=== PATIENT | female | born 1950 | race Caucasian/White ===

== ENCOUNTER 2020-01-23 07:54 | Outpatient (CLI) | payer MEDICARE, SELFPAY ==
--- NOTE | ~2020-01-23 | CT_ITS ---
CT shoulder RT wo con DATE: 01/23/2020 08:33 INDICATION: Right shoulder osteoarthritis TECHNIQUE: Axial images and sagittal and coronal reconstructions through the right shoulder Exam dose: 437.48 mGy-cm total exam DLP. COMPARISON: 01/18/2020 right shoulder FINDINGS: There is joint space narrowing, mild degenerative spurring and mild lateral clavicular and subacromial subarticular cystic change, consistent with degenerative change at the right acromioclavi cular joint. There is joint space narrowing and spurring of the glenoid process and humeral head as well as multip le subarticular degenerative cysts of the glenoid process and the humeral head, compatible with advan herson right glenohumeral osteoarthritis. No fracture, dislocation, periosteal reaction or bone destruction is evident. IMPRESSION: Severe osteoarthritis at the right glenohumeral joint Degenerative change of the right acromioclavicular joint Reviewed, dictated and finalized at [facility]. Reviewed, dictated and finalized at location [facility].
== END 2020-01-23 07:55 | disposition home or self-care (01) ==
PROVIDERS: PCP Family Medicine; Visit Provider Orthopaedic Surgery
DX: M19.011 Primary osteoarthritis, right shoulder (principal)
CPT/HCPCS: 73200

== ENCOUNTER 2020-01-29 11:56 | Outpatient (CLI) | payer MEDICARE, SELFPAY ==
--- NOTE | 2020-01-29 12:43 | ECG_ITS ---
Measurements Intervals [place] Rate: 54 P: 52 IA: 127 QRS: 23 QRSD: 88 T: 7 QT: 417 QTc: 397 Interpretive Statements SINUS BRADYCARDIA BASELINE ARTIFACT- I, II, III, AVR, AVL, AVF BORDERLINE ECG Electronically Signed On 01-29-2020 13:06:07 CDT by Prosper Constantino D.O.
[2020-01-29 13:05] LABS: Basophils Absolute Auto 0.1 K/mm3 (0.0-0.1); Basophils Percent Auto 0.7 % (0.2-1.2); Eosinophils Absolute Auto 0.2 K/mm3 (0-0.3); Eosinophils Percent Auto 3.2 % (0-4.4); Hematocrit 39.5 % (37.0-47.0); Hemoglobin 12.8 g/dL (12.0-15.0); Immature Granulocyte Absolute 0.01 K/mm3 (0.00-0.031); Immature Granulocyte Percent A 0.1 % (0-0.5); Lymphocytes Percent Auto 37.3 % (18.3-44.2); Mean Corpuscular HGB Conc 32.4 g/dl (32-36); Mean Corpuscular Hemoglobin 26.7 pg (26-34); Mean Corpuscular Volume 82.3 fl (80-100); Mean Platelet Volume 10.7 fl (7.4-10.4); Monocytes Absolute Auto 0.5 K/mm3 (0.1-0.6); Monocytes Percent Auto 7.1 % (2.6-8.5); Neutrophils Absolute Auto 3.7 K/mm3 (1.3-6.7); Neutrophils Percent Auto 51.6 % (45.5-73.1); Platelet Count Result 251 k/mm3 (150-375); Red Cell Distribution Width 16.4 % (11.5-14.5); White Blood Count 7.2 K/mm3 (4.5-10.0)
== END 2020-01-29 11:57 | disposition home or self-care (01) ==
LOC: ANHSURGERY 12:00
PROVIDERS: PCP Family Medicine; Visit Provider Orthopaedic Surgery
DX: M19.011 Primary osteoarthritis, right shoulder (principal); Z01.818 Encounter for other preprocedural examination; R94.31 Abnormal electrocardiogram [ECG] [EKG]
CPT/HCPCS: 36415; 85025; 86850; 86900; 86901; 87081; 93005

== ENCOUNTER 2020-02-09 01:05 | Outpatient (CLI) | payer MEDICARE, SELFPAY ==
[2020-02-09 19:05] LABS: SARS-CoV-2 RNA PCR Negative
== END 2020-02-09 01:06 | disposition home or self-care (01) ==
LOC: ANHCOVIDDT 01:05
PROVIDERS: PCP Family Medicine; Visit Provider Orthopaedic Surgery
DX: Z01.812 Encounter for preprocedural laboratory examination (principal); Z20.828 Contact with and (suspected) exposure to other viral communicable diseases
CPT/HCPCS: 87635; C9803; U0003

== ENCOUNTER 2020-02-11 11:44 | Inpatient (IN) | payer MEDICARE, SELFPAY ==
[2020-01-29 12:08] VITALS: BP 116/70; PULSE 60; RESP 18; TEMP 36.9; O2SAT 98
[2020-01-29 12:11] VITALS: BMI 27.2
--- NOTE | 2020-02-10 10:30 | WPDANESEPPF ---
Anes - Initial Pre Proc Eval Procedure: Operation Date: 02/11/20 07:30 Proposed Procedures p Right Anatomic Total Shoulder Arthroplasty - Momo Arguelles MD Date/Time: 02/10/20 10:30 Surgeon: Momo Arguelles MD Pre Op Diagnosis: DJD Right Shoulder Patient Data Age: 69 Gender: F Height: 1.52 m Weight: 63.3 kg Last Vital Signs Temp 36.9 C 01/29/20 12:08 Pulse 60 01/29/20 12:08 Resp 18 01/29/20 12:08 BP 116/70 01/29/20 12:08 Pulse Ox 98 01/29/20 12:08 Allergies Allergy/AdvReac Type Severity Reaction Status Date / Time Penicillins Allergy Unknown Unknown Verified 01/29/20 12:10 aspirin AdvReac Intermediate Congested Verified 02/11/20 06:42 Home Medications Medication Instructions Recorded Confirmed Type No Home Medications 01/18/20 01/29/20 History Patient hx anesthesia problems: none Family hx anesthesia problems: none PMFSH Past Medical History Medical History (Updated 02/08/20 @ 13:37 by Momo Arguelles MD) History of fracture of arm x3 Surgeries Osteoarthritis of right shoulder Surgical History Surgical History History of hysterectomy History of shoulder surgery (~03/06/11) Arth.Extensive Debridement & Removal Loose Body History of tonsillectomy Family History Family History Father Heart disease Parkinsons DVT (deep venous thrombosis) Mother Kidney failure Knee joint replacement status Frozen shoulder Grandparent Heart disease Son Neuroendocrine cancer Social History Social History Smoking status: Never smoker Second hand tobacco smoke exposure: No Alcohol intake: never Substance use: never Living arrangements: with family Spiritual care concerns: No Anes - Eval Final PreProcedure Day of Procedure 02/10/20 10:30 Patient weight: overweight Heart: regular rate and rhythm Lungs: clear to auscultation and normal air movement Airway: Mallampati scale Neurological: alert and oriented Last oral intake: >/= 8 hours ASA classification: II Emergent: no Anesthetic plan: proceed Anesthesia type and monitoring: general ETT Informed Consent: The patient's anesthetic plan and its attendant risks and benefits were discussed with the patient/family/POA. Questions were solicited and answers provided to the satisfaction of the patient/family/POA.
[2020-02-11] VITALS (14 sets, daily range): BP systolic 98–117; BP diastolic 49–78; PULSE 55–73; RESP 12–19; TEMP 36.1–36.7; O2SAT 94–100; BMI 26.7
--- NOTE | ~2020-02-11 | XR_ITS ---
EXAMINATION: XR shoulder RT min 2V DATE: 02/11/2020 11:01 INDICATION: Right shoulder arthroplasty. Postop. TECHNIQUE: 2 views of right shoulder were obtained. COMPARISON: Right shoulder radiographs 01/18/2020 FINDINGS: There is a total right shoulder arthroplasty in near-anatomic alignment. No fracture. There is gas in the soft tissues, consistent with recent surgery. IMPRESSION: 1. Total right shoulder arthroplasty in near-anatomic alignment. Reviewed, dictated and finalized at location [facility].
[2020-02-11] MEDS: LACTATED RINGERS 1,000 ML 30 ML IV CONT ×2 (06:30→10:43)
[2020-02-11] MEDS: TRANEXAMIC ACID 1,000MG/ISO100 1,000 MG/100 ML BAG 200 MG IVPB (06:35)
[2020-02-11] MEDS: ACETAMINOPHEN 500 MG TABLET 1000 MG PO (06:35)
[2020-02-11] MEDS: KETOROLAC 15 MG/ML VIAL (*BKC) IV PUSH (06:51)
--- NOTE | 2020-02-11 07:20 | WPDHPUPDATE1 ---
History and Physical Update Update Date/Time: 02/11/20 07:20 History and Physical has been reviewed, including an updated exam of the patient. There are NO changes in the patient's condition. Risks, benefits, and alternatives have been discussed and questions answered. Patient agrees to proceed with procedure.
--- NOTE | 2020-02-11 07:25 | WPDANESPNB ---
Anes - Peripheral Nerve Block Date/Time: 02/11/20 07:25 I have discussed with the patient/family/POA the placement of a peripheral nerve block for post-operative pain management, including associated risks, benefits, complications, and side effects. Alternative methods of post-operative analgesia were detailed. Questions were solicited and answers provided to the satisfaction of the patient/family/POA. Time-Out: A pre-procedural Time-Out was completed immediately before starting the procedure and confirmed: Patient Identification, Site, Procedure, Patient Position and the Availability of Requisite Equipment. Clinical Indications: Acute post-operative pain management requested by the operative surgeon. Nerve Block Insertion Note Anes-nerve block: supraclavicular right Patient position: supine Skin prep: chlorhexidine Needle: 22 gauge, stimulating, insulated echogenic needle. Needle length: 80 mm Technique: ultrasound (in plane) Injectate: bupivacaine 0.5% with epi 5 mcg/ml (20cc) Observations: tolerated well Complications: none Procedure start time:: 715 Procedure end time:: 720
[2020-02-11] MEDS: CLINDAMYCIN 900 MG/D5W 50 ML 900 MG/50 ML PIGGYBACK 50 MG IVPB (07:26)
--- NOTE | 2020-02-11 11:28 | PM.PROC ---
Procedure Note - Detailed Date of procedure: 02/11/20 Pre-op diagnosis: DJD Right Shoulder Post-op diagnosis: same Procedure performed: 1. Anatomic total shoulder arthroplasty 2. Lesser tuberosity osteotomy. 3. Biceps tenodesis. Description of procedure: Bone quality was very good on the humerus, and good on the glenoid despite the cystic changes there. The patient stature was very small. The smallest glenoid component fit with a 1 mm wall both anterior and posterior. Slight correction with the reaming, then another 5 degrees with the augmented implant. Soft tissue balance was ideal with the 41 head, thus a very slight overhang was accepted. Posterior capsule excision was needed for glenoid exposure. No repair or rotator interval closure was needed. Anatomic humeral retroversion was 25 degrees. Implants: Tornier Aequalis Ascend Flex humeral stem size 1B. Aequalis humeral head flex system size 41 low offset. Shoulder Innovations, Glenoid circular in-line peg, 5 degree augmented, 22 x 6 millimeter glenoid component. Anesthesia: GETA and regional (interscalenen block) Surgeon: Momo Arguelles MD Repair Miller: Brianna Grossman PA-C Estimated blood loss (mL): 150 Drains: No Complications: No immediate complications Condition: stable Disposition: PACU Findings: Network Admin Required for patient positioning, surgical retraction, limb positioning, assisting osteotomy repair, and wound closure. OPERATIVE DETAILS: The patient was given an interscalene block in the preoperative area. Preoperative antibiotics were given. The patient was transferred to the operating room and a general anesthetic was administered. The beach chair position was used at 45 degrees. All bony prominences were padded. The head was carefully stabilized on the [place] quality control head. A sterile prep and drape was performed in the usual manner with Chloraprep. A longitudinal incision was created at the anterior shoulder just lateral to the deltopectoral interval. Careful dissection was performed to expose the interval and protect the cephalic vein. The vein was retracted medially. The upper border of the pectoralis was released. Anterior circumflex vessel branches were suture ligated. The biceps was tenodesed. A small lesser tuberosity osteotomy was performed after opening the joint capsule at the rotator interval. The inferior capsule was released, exposing the humeral head. Osteophytes were removed. Care was taken to stay on bone to protect the axillary nerve. The anatomic head cut was taken with the oscillating saw. Sounding and broaching was performed. The neck anteversion and inclination were carefully assessed. Head sizing and offset were determined. The cut protector was placed, and attention was turned to the glenoid. Retractors were placed. Releases were carried out for exposure. The subscapularis was mobilized, the inferior capsule and long head of triceps released, and the superior and middle glenohumeral ligaments released as well. Labral tissue was resected. The sizing template was used and a guide pin was placed. 5? of deformity correction was performed. An additiona 5 degrees obtained with the implant. The reamer was placed over the guide pin and taken down to create a 3-4 millimeter wall. The peg drill guide was applied and the pegs drilled. The trial component was placed and fit very nicely. Excellent stability was confirmed. The real component was cemented into position. Excess cement was carefully removed. The humerus was prepared for subscapularis repair with the drilling and passage of 3 suture leaders, and a rip stop #2 tape suture at the biceps groove which was wrapped around the humeral stem. The real humeral stem and head were impacted into position. The shoulder was copiously irrigated periodically with pulsatile lavage. The shoulder was reduced and the subscapularis repaired with #5 Ethibond suture modified Isai-Kamran sutures, and reinforced with number 2 Ethibond suture. The rotator
--- NOTE | 2020-02-11 11:54 | ADMGEN ---
This patient, Amanda Ashford, was admitted to Medical Room 246-01. Patient/family oriented to hospital policies and general routines including ID bracelet, bed and alarms, visiting hours, pain management, procedures, bathroom and other care routines, personal items, smoking policy, room service/diet, and visiting hours. Information on how to activate the Rapid Response Team has been discussed. Patient/Family are encouraged to report perceived risks to care and to ask questions if they do not understand what they are told or what they should do.
--- NOTE | 2020-02-11 14:14 | PCPTNOTE ---
Attempted to see patient for PT evaluation post TSA, patient still unable to feel and move R UE, will attempt evaluation tomorrow morning.
[2020-02-11] MEDS: DOCUSATE SODIUM 100 MG CAPSULE PO (17:36)
[2020-02-11] MEDS: ASPIRIN 81 MG ENTERIC TABLET PO (17:36)
[2020-02-11] MEDS: MELOXICAM 7.5 MG TABLET PO (17:36)
[2020-02-12 01:57] VITALS: BP 108/57; PULSE 71; RESP 16; TEMP 36.4; O2SAT 98
[2020-02-12 06:00] VITALS: BP 95/60; PULSE 71; RESP 16; TEMP 36.8; O2SAT 95
[2020-02-12] MEDS: oxyCODONE HCL (*CRX) 5 MG TAB IR PO ×2 (07:09→11:28)
[2020-02-12] MEDS: DOCUSATE SODIUM 100 MG CAPSULE PO (09:05)
[2020-02-12] MEDS: ASPIRIN 81 MG ENTERIC TABLET PO (09:05)
[2020-02-12] MEDS: MELOXICAM 7.5 MG TABLET PO (09:05)
[2020-02-12 09:29] VITALS: BP 98/55; PULSE 60; RESP 16; TEMP 36.6; O2SAT 98
[2020-02-12 09:33] VITALS: O2SAT 95
--- NOTE | 2020-02-12 11:30 | PCOTNOTE ---
On 02/12/20, the student, Leslie Jordan, provided care and completed [facility] documentation on this patient. I have reviewed the student's documentation and agree with the findings.
[2020-02-12 14:00] VITALS: BP 109/69; PULSE 67; RESP 16; TEMP 36.6; O2SAT 100
--- NOTE | 2020-02-12 14:23 | WPDANESPN ---
Anes - Prog Note Post-Op Date/Time: 02/12/20 14:23 Cardiovascular status: normal Respiratory status: normal Airway patency: baseline Mental status: baseline Post-Op hydration status: normal Vital Signs: Last Vital Signs Temp 97.9 F 02/12/20 14:00 Pulse 67 02/12/20 14:00 Resp 16 02/12/20 14:00 BP 109/69 02/12/20 14:00 Pulse Ox 100 02/12/20 14:00 Pain Score (VAS): 04/24 I/O: Intake & Output 02/11/20 02/12/20 02/12/20 23:59 07:59 15:59 Intake Total 490 300 480 Output Total 500 1300 Balance -10 -1000 480 Post-procedural complaints: none Patient Feedback: Patient satisfied with anesthetic care.
--- NOTE | 2020-02-12 14:37 | PM.DS ---
DS: Admitting Diagnosis Admitting Diagnosis Admitting Diagnosis: DJD Right Shoulder DS: Discharge Diagnosis Discharge Diagnosis (1) Status post replacement of right shoulder joint: Code(s): Z96.611 - Presence of right artificial shoulder joint Status: Acute DS: Summary Hospital Course Reason for hospitalization: Anatomic total shoulder arthroplasty. Hospital Course: Tolerated surgery well. Progressed appropriately with therapy. Status at Discharge Functional status at discharge: independent ambulation Overall status at discharge: patient is progressing back to baseline Time Spent with Patient Time attestation: Total time spent providing and/or coordinating discharge services: Exam Const: General: no acute distress Resp: Effort & Inspection: normal respiratory effort Skin: Other: Wound healing well. Mepilex dressing intact. No hematoma or drainage. Sling applied appropriately. Deltoid muscle fires. Axillary nerve sensation intact. Good material handling supervisor strength. No edema. radial pulse palpable. Neuro: Motor exam (neuro): 5/5 motor strength present throughout Sensory Exam: normal sensation Psych: Mental Status: mental status grossly normal Speech and movement: Normal speech and movement present Discharge Plan Discharge Attending physician on discharge: Momo Arguelles Consulting providers: Denton Dyson V. Discharging Clinician: Momo Arguelles Patient Disposition: Home, Self-Care Activity: august shower Diet: as tolerated Wound Care Instructions: follow printed instructions Discharge Instructions: See instruction sheet. Patient Instructions: Antibiotic Form, Joint Replacement Surgery (DC), Shoulder Arthroplasty (DC), Pain Management After Surgery (DC) Stand Alone Forms: General Discharge Information Follow-up/Referrals: Momo Arguelles MD [Physician] - Discharge Medications: No Action oxycodone-acetaminophen 5-325 mg tablet 1 - 2 tablet PO Q4-6H MDD 6 tablets PRN (Reason: pain) Qty: 30 RF: 0 Date of admission: 02/11/20 11:44 Primary Care Provider: Renetta,Naye Arora Admitting Provider: Momo Arguelles Attending physician on admission: Momo Arguelles
== END 2020-02-12 15:24 | disposition home or self-care (01) | DRG 483 ==
LOC: ANH2MED 11:53
PROVIDERS: Admitting Provider Orthopaedic Surgery; PCP Family Medicine; Visit Provider Orthopaedic Surgery
PROC: 0RRJ0JZ Replacement of Right Shoulder Joint with Synthetic Substitute, Open Approach (ICD-10-PCS; CPT 23472; principal; 2020-02-11 07:30)
DX: M19.011 Primary osteoarthritis, right shoulder (principal); Z90.710 Acquired absence of both cervix and uterus
CPT/HCPCS: 73030; 87635; 97110; 97161; 97165; 97530; A4565; A9270; C1713; C1776; C9803; J0131; J0171; J0690; J1100; J1885; J2250; J2270; J2370; J2405; J2704; J2710; J2795; J3010; J7120; U0003

== ENCOUNTER 2021-04-13 09:01 | Outpatient (CLI) | payer MEDICARE, SELFPAY ==
--- NOTE | 2021-04-13 | ECG_ITS ---
Measurements Intervals [place] Rate: 60 P: 21 MN: 129 QRS: 26 QRSD: 80 T: 16 QT: 409 QTc: 410 Interpretive Statements SINUS RHYTHM BASELINE ARTIFACT- I, II, III, AVR, AVL, AVF NORMAL ECG Electronically Signed On 04-13-2021 10:19:39 HARNESS PULLER by Prosper Constantino D.O.
--- NOTE | ~2021-04-13 | CT_ITS ---
EXAMINATION: CT LE RT wo con DATE: 04/13/2021 09:37 INDICATION: Unilateral primary osteoarthritis of right knee. TECHNIQUE: Computed tomography (CT) of the right lower limb was performed without intravenous contras t. Automated exposure control and iterative reconstruction technique were employed. The dose-length p roduct was 1461.13 mGy-cm. COMPARISON: Right knee radiographs 02/08/2021 FINDINGS: Bone alignment is normal. There is mild right hip osteoarthritis. The right knee demonstrat e moderate tricompartmental osteoarthritis. There is a small knee joint effusion. There is mild ankle joint osteoarthritis. There is severe osteoarthritis of medial naviculocuneiform joint. There is mod erate fatty atrophy of the semimembranosus and long head of biceps femoris muscles. IMPRESSION: 1. Moderate right knee osteoarthritis. 2. Small right knee joint effusion. Reviewed, dictated and finalized at location [facility]. MAKER
[2021-04-13 10:25] LABS: Albumin Level 4.2 g/dL (3.5-5.1); Estimated Glomerular Filt Rate > 60; Glucose 97 mg/dL (65-110)
[2021-04-13 10:48] LABS: Urine Cotinine NEGATIVE
== END 2021-04-13 09:02 | disposition home or self-care (01) ==
PROVIDERS: PCP Family Medicine; Visit Provider Orthopaedic Surgery
DX: Z01.818 Encounter for other preprocedural examination (principal); M17.11 Unilateral primary osteoarthritis, right knee; M25.461 Effusion, right knee
CPT/HCPCS: 73700; 80307; 82040; 82565; 82947; 93005

== ENCOUNTER 2021-05-31 07:43 | Outpatient (CLI) | payer MEDICARE, SELFPAY ==
[2021-05-31 08:40] LABS: Basophils Absolute Auto 0.1 K/mm3 (0.0-0.1); Basophils Percent Auto 1.2 % (0.2-1.2); Eosinophils Absolute Auto 0.3 K/mm3 (0-0.3); Eosinophils Percent Auto 4.2 % (0-4.4); Hematocrit 36.1 % (37.0-47.0); Hemoglobin 11.2 g/dL (12.0-15.0); Immature Granulocyte Absolute 0.02 K/mm3 (0.00-0.031); Immature Granulocyte Percent A 0.3 % (0-0.5); Lymphocytes Absolute Auto 2.37 K/mm3 (0.9-3.2); Lymphocytes Percent Auto 35.9 % (18.3-44.2); Mean Platelet Volume 10.5 fl (7.4-10.4); Monocytes Absolute Auto 0.7 K/mm3 (0.1-0.6); Monocytes Percent Auto 10.3 % (2.6-8.5); Neutrophils Absolute Auto 3.2 K/mm3 (1.3-6.7); Neutrophils Percent Auto 48.1 % (45.5-73.1); Platelet Count Result 293 k/mm3 (150-375); Red Cell Distribution Width 15.5 % (11.5-14.5); White Blood Count 6.6 K/mm3 (4.5-10.0)
[2021-05-31 08:52] LABS: Albumin Level 4.3 g/dL (3.5-5.1); Estimated Glomerular Filt Rate > 60; Glucose 75 mg/dL (65-110)
[2021-05-31 08:52] LABS: Urine Cotinine NEGATIVE
[2021-06-01 12:56] LABS: Hemoglobin A1C 5.4 % (<5.7)
== END 2021-05-31 07:44 | disposition home or self-care (01) ==
LOC: ANHSURGERY 07:49
PROVIDERS: PCP Family Medicine; Visit Provider Orthopaedic Surgery
DX: Z01.812 Encounter for preprocedural laboratory examination (principal); M17.11 Unilateral primary osteoarthritis, right knee; Z51.81 Encounter for therapeutic drug level monitoring; Z79.899 Other long term (current) drug therapy
CPT/HCPCS: 80307; 82040; 82565; 82947; 83036; 85025; 87081

== ENCOUNTER → 2021-06-17 00:01 | Outpatient (CLI) | payer MEDICARE, SELFPAY ==
[2021-06-17 11:50] LABS: SARS-CoV-2 RNA PCR Negative
== END ==
PROVIDERS: PCP Family Medicine; Visit Provider Orthopaedic Surgery
DX: Z01.812 Encounter for preprocedural laboratory examination (principal); Z20.822 Contact with and (suspected) exposure to COVID-19
CPT/HCPCS: C9803; U0003; U0005

== ENCOUNTER 2021-06-20 00:20 | Day surgery (SDC) | payer MEDICARE, SELFPAY ==
--- NOTE | 2021-05-31 07:46 | PC.NURSE ---
Report to the Outpatient Waiting Room, entrance under the green pavilion located off [facility], at time _1000_ on date _06/20/21_. OR Time: _1200_. - You and your visitor will be asked a series of questions to screen for COVID 19 for your protection. - A mask is required within the hospital. Preoperative COVID Testing Requirements: COVID TEST SCHEDULED FOR 06/17/21 @ 0935 COVID test must be conducted within 72 hours of surgery and patient is asked to isolate self from time of testing until procedure. You will go to the [employer] [facility] for your COVID testing. The [employer] [facility] site is located at the corner of [address] [facility]. You will only be called if COVID results are positive and your surgeon may reschedule your elective surgery date. Patients may have clear liquids (water, carbonated beverages, clear teas, apple juice) until 3 hours prior to surgery (0900 AM) with a maximum of 20 ounces. - No food from midnight until time of surgery Take the following medications with a SIP of water the morning of surgery: _NONE__ Medications to discontinue per ANESTHESIA - _APPLE CIDER GUMMY 3 DAYS PRIOR TO SURGERY, LAST DOSE TO BE TAKEN ON 06/16/21___ Please no make-up, nail albanian, hairspray, perfume, deodorant, or body powder the day of surgery. No jewelry (including any body piercings) or valuables the day of surgery, leave them at home. Please take a shower or bath the night before, or the morning of, surgery with an antibacterial soap. Wear comfortable, loose fitting clothing. - Jewelry must be removed prior to entering the operating room. Rings and piercings that are not removed may be cut off. - The hospital will not accept responsibility for valuables. - Please leave all valuables, including medications, at home the day of surgery. If you are going home after surgery, a licensed sheet pile driver operator must drive you home. - NO public transportation without another adult. - We recommend that an adult stay with you for 24 hours following discharge. - We also recommend that you do not drive, make important decision, drink alcoholic beverages, or take any drugs that were not prescribed by your health care provider for at least 24 hours after your discharge time. One visitor will be allowed to accompany the patient into the hospital. Patients visitor will be instructed to remain with patient at all times or leave the building. We will allow the visitor to come back to the postoperative area when patient is ready. (VISITING HOURS 10AM - 7PM, 1 VISITOR PER DAY) Follow any additional instructions given to you from your surgeon. TOTAL JOINT CLASS SCHEDULED FOR 05/31/21 @ [address] [place] [address], USE MAIN ENTRANCE - LOWER LEVEL Instructions given to ___PT and asked if any additional questions and then verbalized understanding. Patient advised to call surgeon office or pre surgery nurse liaisonKAREN [phone] if any additional questions.
[2021-05-31 08:10] VITALS: BP 150/80; PULSE 78; RESP 18; TEMP 37.1; O2SAT 97; BMI 30.1
[2021-06-20] VITALS (15 sets, daily range): BP systolic 101–141; BP diastolic 50–81; PULSE 62–86; RESP 12–20; TEMP 36.2–37; O2SAT 95–100
--- NOTE | ~2021-06-20 | XR_ITS ---
EXAMINATION: XR knee RT 2V DATE: 06/20/2021 15:08 INDICATION: Total right knee arthroplasty. Postop. TECHNIQUE: 2 views of right knee were obtained. COMPARISON: Right knee radiographs 02/08/2021 FINDINGS: There is a total right knee arthroplasty with patellar resurfacing in near-anatomic alignme nt. No fracture. There is gas in the knee joint and soft tissues, consistent with recent surgery. IMPRESSION: 1. Total right knee arthroplasty in near-anatomic alignment. Reviewed, dictated and finalized at location A. T CLERKS SUPERVISOR
--- NOTE | 2021-06-20 10:31 | WPDANESEPPF ---
Anes - Initial Pre Proc Eval Procedure: Operation Date: 06/20/21 12:00 Proposed Procedures p Conformis Custom Right Total Knee Arthroplasty - Momo Arguelles MD Date/Time: 06/20/21 10:31 Surgeon: Momo Arguelles MD Pre Op Diagnosis: primary oa right knee Patient Data Age: 71 Gender: F Height: 1.52 m Weight: 68.8 kg Last Vital Signs Temp 37.1 C 05/31/21 08:10 Pulse 78 05/31/21 08:10 Resp 18 05/31/21 08:10 BP 150/80 H 05/31/21 08:10 Pulse Ox 97 05/31/21 08:10 Allergies Allergy/AdvReac Type Severity Reaction Status Date / Time Penicillins Allergy Unknown Unknown - Verified 06/20/21 10:27 A CHILD, AGE 5 aspirin AdvReac Mild Congested Verified 06/20/21 10:27 Home Medications Medication Instructions Recorded Confirmed Type apple cider vinegar 2 gummy QAM 05/31/21 06/20/21 History Patient hx anesthesia problems: none Family hx anesthesia problems: none Results Review: All pre-operative results and documents have been reviewed as part of the pre-operative evaluation. [facility] Past Medical History Medical History History of fracture of arm x3 Surgeries Osteoarthritis of right knee Osteoarthritis of right shoulder Surgical History Surgical History History of hysterectomy History of shoulder surgery (~03/06/11) Arth.Extensive Debridement & Removal Loose Body History of tonsillectomy History of total replacement of right shoulder joint (~02/11/20) Family History Family History Father Heart disease Parkinsons DVT (deep venous thrombosis) Mother Kidney failure Knee joint replacement status Frozen shoulder Grandparent Heart disease Son Neuroendocrine cancer Social History Social History Second hand tobacco smoke exposure: No Additional smoking assessment comments: PT DENIES ALL FORMS OF TOBACCO USE Alcohol intake: never Substance use: never Substance use type: does not use Living arrangements: with family Spiritual care concerns: No Anes - Eval Final PreProcedure Day of Procedure 06/20/21 10:31 Patient weight: overweight Heart: regular rate and rhythm Lungs: clear to auscultation and normal air movement Airway: Mallampati scale class II Neurological: alert and oriented Last oral intake: >/= 8 hours ASA classification: II Emergent: no Anesthetic plan: proceed Anesthesia type and monitoring: general LMA and standard monitoring Results Review: All pre-operative results and documents have been reviewed as part of the pre-operative evaluation. Informed Consent: The patient's anesthetic plan and its attendant risks and benefits were discussed with the patient/family/POA. Questions were solicited and answers provided to the satisfaction of the patient/family/POA.
--- NOTE | 2021-06-20 10:32 | WPDANESPNB ---
Anes - Peripheral Nerve Block Date/Time: 06/20/21 10:32 I have discussed with the patient/family/POA the placement of a peripheral nerve block for post-operative pain management, including associated risks, benefits, complications, and side effects. Alternative methods of post-operative analgesia were detailed. Questions were solicited and answers provided to the satisfaction of the patient/family/POA. Time-Out: A pre-procedural Time-Out was completed immediately before starting the procedure and confirmed: Patient Identification, Site, Procedure, Patient Position and the Availability of Requisite Equipment. Clinical Indications: Acute post-operative pain management requested by the operative surgeon. Nerve Block Insertion Note Anes-nerve block: adductor canal right Patient position: supine Skin prep: chlorhexidine Needle: 22 gauge, stimulating, insulated echogenic needle. Needle length: 80 mm Technique: ultrasound Injectate: bupivacaine 0.5% with epi 5 mcg/ml (30cc - no epi) Observations: tolerated well Complications: none Procedure start time:: 1150 Procedure end time:: 1153
[2021-06-20] MEDS: ACETAMINOPHEN 500 MG TABLET 1000 MG PO (10:36)
[2021-06-20] MEDS: LACTATED RINGERS 1,000 ML 30 ML IV CONT ×2 (10:51→14:49)
[2021-06-20] MEDS: TRANEXAMIC ACID 1,000MG/ISO100 1,000 MG/100 ML BAG 200 MG IVPB (11:00)
--- NOTE | 2021-06-20 11:29 | WPDHPUPDATE1 ---
History and Physical Update Update Date/Time: 06/20/21 11:29 History and Physical has been reviewed, including an updated exam of the patient. There are NO changes in the patient's condition. Risks, benefits, and alternatives have been discussed and questions answered. Patient agrees to proceed with procedure.
[2021-06-20] MEDS: ceFAZolin 2 GM/D5W 50 ML 2 GM/50 ML BAG IVPB ×2 (12:26→20:31)
[2021-06-20] MEDS: ONDANSETRON INJ 4 MG/2 ML VIAL IV PUSH (15:28)
[2021-06-20] MEDS: fentaNYL CITRATE INJ (*CRX) 100 MCG/2 ML VIAL 25 MCG IV PUSH ×4 (15:28→16:07)
--- NOTE | 2021-06-20 16:13 | W.PM.PROC2 ---
Procedure Note - Detailed Date of Procedure 06/20/21 Pre-op Diagnosis primary oa right knee Post-op Diagnosis Same Procedure Performed Total knee arthroplasty, right. Surgeon Momo Arguelles MD Clinical Science Liaison Brianna Pepper PA-C Anesthesia General and Regional (Subsartorial block.) Description of Procedure Physician bacteriology research assistant, Brianna Pepper PA-C, required for surgery; including patient positioning, draping, tissue retraction, maintaining instrument position, cement removal, wound closure, and dressing placement. Preoperative antibiotics were given. The limb was prepped and draped in the usual sterile fashion with a well-padded tourniquet high on the thigh. The limb was exsanguinated and the tourniquet inflated to 300 mmHg. A longitudinal incision was created just medial to the patella. A trivector approach to the knee was performed. Arthrotomy was taken down through the joint capsule. No significant releases were initially taken. The femur was exposed and the F1 jig was applied. The coring tool was used to remove the cartilage for the F2 jig to sit flush with the bone. The jig was pinned and the distal cut carefully taken. Caliper measurements confirmed appropriate bony resections according to the preoperative templated plan. The F4 cutting jig for the femur was applied, at the standard rotation. The AP and anterior chamfer cuts were taken. The F5 jig was applied and the posterior chamfer cuts were taken. The tibia was prepared using the T1 jig, after removing cartilage for the jig contact points. Proper alignment was checked with the alignment loretta. The tibia was cut using the T1u guide. Gap balancing was performed. Gap measurements were taken and the knee was trialed. Excellent alignment and soft tissue balancing was confirmed. The posterior cruciate ligament was recessed along the proximal tibia. The patella was cut for resurfacing. Three lug holes were drilled. Meniscal remnants were removed. The trial components were assembled. Excellent range of motion and proper soft tissue balancing were confirmed throughout the full range of motion. Patellar tracking was excellent. The knee was copiously irrigated periodically throughout the procedure. The real implants were cemented into position. Excess cement was carefully removed. The wound was closed in layers with interrupted #1 Vicryl suture, 2-0 strata fix suture, 0 strata fix suture, 2-0 strata fix suture. Steri-Strips placed on the skin with the knee flexed. Sterile bulky dressing applied. The patient was brought to the recovery room in stable condition. There were no complications. Implants Conformis Custom total knee arthroplasty. Cemented. Cruciate retaining. 7B insert. 29 mm round patella. Estimated Blood Loss -200.0 Drains No Complications No immediate complications Condition Stable Disposition PACU
--- NOTE | 2021-06-20 16:43 | ADMGEN ---
This patient, Amanda Ashford, was admitted to Medical Room 241-. Patient/family oriented to hospital policies and general routines including ID bracelet, bed and alarms, visiting hours, pain management, procedures, bathroom and other care routines, personal items, smoking policy, room service/diet, and visiting hours. Information on how to activate the Rapid Response Team has been discussed. Patient/Family are encouraged to report perceived risks to care and to ask questions if they do not understand what they are told or what they should do.
[2021-06-20] MEDS: SODIUM CHLORIDE 0.9% IV 1,000 ML 125 ML IV CONT (17:56)
[2021-06-20] MEDS: MELOXICAM 7.5 MG TABLET PO (17:58)
[2021-06-20] MEDS: ASPIRIN 81 MG ENTERIC TABLET PO (20:31)
[2021-06-20] MEDS: oxyCODONE HCL (*CRX) 5 MG TAB IR PO (20:31)
[2021-06-20] MEDS: FAMOTIDINE 20 MG TABLET PO (20:31)
[2021-06-20] MEDS: SENNA/DOCUSATE SODIUM TABLET 2 TAB PO (20:31)
[2021-06-21] MEDS: ceFAZolin 2 GM/D5W 50 ML 2 GM/50 ML BAG IVPB ×2 (04:34→11:14)
[2021-06-21 05:13] VITALS: BP 91/48; PULSE 71; RESP 20; TEMP 36.1; O2SAT 96
[2021-06-21 08:30] VITALS: BP 113/63; PULSE 85
[2021-06-21] MEDS: oxyCODONE HCL (*CRX) 5 MG TAB IR PO (08:51)
[2021-06-21] MEDS: SENNA/DOCUSATE SODIUM TABLET 2 TAB PO (08:52)
[2021-06-21] MEDS: ASPIRIN 81 MG ENTERIC TABLET PO (08:52)
[2021-06-21] MEDS: polyethylene glycoL 3350 17 GM POWD.PACK PO (08:52)
[2021-06-21] MEDS: FAMOTIDINE 20 MG TABLET PO (08:52)
[2021-06-21] MEDS: MELOXICAM 7.5 MG TABLET PO (08:52)
[2021-06-21 09:58] VITALS: BP 117/59; PULSE 69; RESP 16; TEMP 37.1; O2SAT 99
--- NOTE | 2021-06-21 10:49 | P.DS_ITS ---
DS: Admitting Diagnosis Discharge Date 06/21/21 Admitting Diagnosis OA knee Right DS: Discharge Diagnosis Discharge Diagnosis (1) Status post total right knee replacement: Code(s): Z96.651 - Presence of right artificial knee joint Status: Acute Assessment and Plan: Postop day 1: Right total Knee arthroplasty. Patient tolerated procedure well. No complications. Pain manageable with pain medication. No numbness or tingling. We had a lengthy discussion regarding postoperative wound care, limitations, expectations, and exercises. Patient shows good understanding. He has had initial physical therapy and is tolerating it well. DVT prophylaxis: 81 mg baby aspirin b.i.d. for 14 days. Compression socks for 3 weeks. Short frequent walks. Pain medication: Percocet. Prednisone. Meloxicam. Patient has followup appointment with Dr. Arguelles in 3 weeks. DS: Summary Hospital Course Reason for hospitalization: Total knee arthroplasty Hospital Course: Patient tolerated procedure well. Has had initial PT/OT. No complications. Pain well managed. Status at Discharge Functional status at discharge: uses cane/walker Overall status at discharge: patient is progressing back to baseline Time Spent with Patient Time attestation: Total time spent providing and/or coordinating discharge services: Exam Narrative: Overweight 71 y/o female. Resting comfortably in chair. No acute distress. A&O x3. Wearing compression socks bilaterally. Dressing intact with no drainage. Moderate swelling. No ecchymosis. No erythema. No hematoma. Good early range of motion. Calf nontender. Neurologic status intact. No varicosities. Distal pulses palpable. DS: Data Data Completed and Pending Labs on day of discharge: Labs from last 24 hours 06/20/21 10:13 Blood Type A Positive Antibody Screen Negative Discharge Plan Discharge Patient Disposition: Home, Self-Care Discharge Instructions: See green instruction sheet Stand Alone Forms: General Discharge Instructions Follow-up/Referrals: Brianna Pepper PA [Physician Geophysics Scientist] - Discharge Medications: New meloxicam 15 mg tablet 15 mg PO DAILY Qty: 30 RF: 0 prednisone 5 mg tablet 5 mg PO DAILY 21 Days Qty: 21 RF: 0 aspirin 81 mg tablet,delayed release (DR/EC) 81 mg PO BID 14 Days Qty: 28 RF: 0 oxycodone-acetaminophen 5-325 mg tablet 1 - 2 tablet PO Q4-6H MDD 6 PRN (Reason: pain) Qty: 30 RF: 0 Continued apple cider vinegar 2 gummy QAM RF: 0 Other Ambulatory Orders: Hemoglobin A1C (Routine) Timeframe: 2 Months Location: Determined by Patient Ordered By: Momo Arguelles
[2021-06-21] MEDS: ONDANSETRON INJ 4 MG/2 ML VIAL IV PUSH (12:09)
[2021-06-21] MEDS: oxyCODONE HCL (*CRX) 5 MG TAB IR 10 MG PO (13:09)
--- NOTE | 2021-06-21 13:09 | WPDANESPN ---
Anes - Prog Note Post-Op Date/Time: 06/21/21 13:09 Cardiovascular status: normal Respiratory status: normal Airway patency: baseline Mental status: baseline Post-Op hydration status: normal Vital Signs: Last Vital Signs Temp 37.1 C 06/21/21 09:58 Pulse 69 06/21/21 09:58 Resp 16 06/21/21 09:58 BP 117/59 L 06/21/21 09:58 Pulse Ox 99 06/21/21 09:58 Pain Score (VAS): 0 I/O: Intake & Output 06/20/21 06/21/21 06/21/21 23:59 07:59 15:59 Intake Total 690 340 240 Balance 690 340 240 Post-procedural complaints: none Patient Feedback: Patient satisfied with anesthetic care.
[2021-06-21 13:35] VITALS: BP 118/58; PULSE 80; RESP 14; TEMP 36.7; O2SAT 100
== END 2021-06-21 14:14 | disposition home or self-care (01) ==
LOC: ANHSURGERY 10:04 → ANH2MED 16:38
PROVIDERS: PCP Family Medicine; Visit Provider Orthopaedic Surgery
PROC: (CPT 27447; principal; 2021-06-20 12:00)
DX: M17.11 Unilateral primary osteoarthritis, right knee (principal); G89.18 Other acute postprocedural pain
CPT/HCPCS: 27447; 64447; 36415; 73560; 86850; 86900; 86901; 97110; 97116; 97161; 97165; 97535; A9270; C1713; C1776; J0131; J0171; J0690; J1100; J1885; J2250; J2270; J2405; J2704; J2795; J3010; J7030; J7120

== ENCOUNTER 2021-12-06 01:26 | Day surgery (SDC) | payer MEDICARE, SELFPAY ==
[2021-12-05 08:22] VITALS: BMI 28.3
--- NOTE | 2021-12-05 08:27 | PC.NURSE ---
Report to the Outpatient Waiting Room, entrance under the green pavilion located off [facility], at time ___0800____ on date __12/06/21 . OR Time: ____999____. - You and your visitor will be asked to self-screen and do not enter if you have any COVID symptoms. - Only one visitor and NO children visitors are allowed at this time. - The patient visitor is requested to leave or wait in car when not with patient due to restrictions. - A mask is required within the hospital. Patients may have clear liquids (water, carbonated beverages, clear teas, apple juice) until 3 hours prior to surgery (0700 AM) with a maximum of 20 ounces. - No food from midnight until time of surgery - Infants may have breast milk until 4 hours before surgery, formula 6 hours prior to surgery. - Children will be allowed to drink immediately following surgery. If applicable, please bring a bottle or sippy cup to assist with drinking. Juice, water, soda, and popsicles are readily available. For infants on formula, please bring formula the day of surgery. Pacifiers are allowed. Take the following medications with a SIP of water the morning of surgery: NONE Medications to discontinue per physician NONE Date to take last dose Please no make-up, nail russian, hairspray, perfume, deodorant, or body powder the day of surgery. No jewelry (including any body piercings) or valuables the day of surgery, leave them at home. Please take a shower or bath the night before, or the morning of, surgery with an antibacterial soap. Wear comfortable, loose fitting clothing. Children are encouraged to wear pajamas. - Jewelry must be removed prior to entering the operating room. Rings and piercings that are not removed may be cut off. - The hospital will not accept responsibility for valuables. - Please leave all valuables, including medications, at home the day of surgery. If you are going home after surgery, a licensed helper driver must drive you home. - NO public transportation without another adult. - We recommend that an adult stay with you for 24 hours following discharge. - We also recommend that you do not drive, make important decision, drink alcoholic beverages, or take any drugs that were not prescribed by your health care provider for at least 24 hours after your discharge time. For Pediatric surgeries, we recommend two adults accompany the child home (only one inside the building at this time). Follow any additional instructions given to you from your surgeon. If you or anyone in your household have experienced Covid symptoms in the past week, please notify your surgeon or the nurse liaison at the phone number below for possible testing. Telephone instructions given to __PT and asked if any additional questions and then verbalized understanding. Patient advised to call surgeon office or pre surgery nurse liaison [phone] if any additional questions.
--- NOTE | 2021-12-05 14:00 | P.PNAN_ITS ---
Anes - Initial Pre Proc Eval Procedure: Operation Date: 12/06/21 10:00 Proposed Procedures p Right Knee Manipulation - Momo Arguelles MD Date/Time: 12/05/21 14:00 Surgeon: Momo Arguelles MD Pre Op Diagnosis: contracture right knee Patient Data Age: 71 Gender: F Height: 1.52 m Weight: 65.9 kg Allergies Allergy/AdvReac Type Severity Reaction Status Date / Time Penicillins Allergy Unknown Unknown - Verified 12/05/21 08:21 A CHILD, AGE 5 aspirin AdvReac Mild Congested Verified 12/05/21 08:21 Home Medications Medication Instructions Recorded Confirmed Type apple cider vinegar 2 gummy QAM 05/31/21 12/05/21 History Patient hx anesthesia problems: none Family hx anesthesia problems: none Results Review: All pre-operative results and documents have been reviewed as part of the pre- operative evaluation. [facility] Past Medical History Medical History History of fracture of arm x3 Surgeries Osteoarthritis of right knee Osteoarthritis of right shoulder Surgical History Surgical History History of hysterectomy History of shoulder surgery (~03/06/11) Arth.Extensive Debridement & Removal Loose Body History of tonsillectomy History of total replacement of right shoulder joint (~02/11/20) Family History Family History Father Heart disease Parkinsons DVT (deep venous thrombosis) Mother Kidney failure Knee joint replacement status Frozen shoulder Grandparent Heart disease Son Neuroendocrine cancer Social History Social History Smoking status: Never smoker Second hand tobacco smoke exposure: No Additional smoking assessment comments: PT DENIES ALL FORMS OF TOBACCO USE Alcohol intake: never Substance use: never Substance use type: does not use Living arrangements: with family Spiritual care concerns: No Anes - Eval Final PreProcedure Day of Procedure 12/05/21 14:00 Patient weight: overweight Heart: regular rate and rhythm Lungs: clear to auscultation Airway: Mallampati scale class II Neurological: alert and oriented Last oral intake: >/= 8 hours ASA classification: II Emergent: no Anesthetic plan: proceed Anesthesia type and monitoring: general GIVS and standard monitoring Results Review: All pre-operative results and documents have been reviewed as part of the pre- operative evaluation. Informed Consent: The patient's anesthetic plan and its attendant risks and benefits were discussed with the patient/family/POA. Questions were solicited and answers provided to the satisfaction of the patient/family/POA.
[2021-12-06] VITALS (9 sets, daily range): BP systolic 109–133; BP diastolic 58–82; PULSE 51–64; RESP 12–16; TEMP 36.1–36.3; O2SAT 97–100
[2021-12-06] MEDS: LACTATED RINGERS 1,000 ML 30 ML IV CONT (08:30)
[2021-12-06] MEDS: ACETAMINOPHEN 500 MG TABLET 1000 MG PO (08:32)
[2021-12-06] MEDS: KETOROLAC 15 MG/ML VIAL (*BKC) IV PUSH (08:33)
--- NOTE | 2021-12-06 09:04 | WPDHPUPDATE1 ---
History and Physical Update Update Date/Time: 12/06/21 09:04 History and Physical has been reviewed, including an updated exam of the patient. There are NO changes in the patient's condition. Risks, benefits, and alternatives have been discussed and questions answered. Patient agrees to proceed with procedure.
--- NOTE | 2021-12-06 09:53 | SUR.PHASEI ---
0952: Simple mask removed.
--- NOTE | 2021-12-06 10:21 | SUR.PHASEI ---
Left a message for Dr. Arguelles's office in regards to discharge orders.
--- NOTE | 2021-12-06 10:36 | SUR.PHASEI ---
RN left a message on Dr. Arguelles's cell phone for discharge orders.
[2021-12-06] MEDS: oxyCODONE HCL (*CRX) 5 MG TAB IR PO (10:43)
--- NOTE | 2021-12-06 11:04 | W.PM.PROC2 ---
Procedure Note - Detailed Date of Procedure 12/06/21 Pre-op Diagnosis contracture right knee, s/p right total knee arthroplasty. Post-op Diagnosis Same Procedure Performed Manipulation under anesthesia. Surgeon Momo Arguelles MD Anesthesia General Description of Procedure Stiffness and pain status post total knee arthroplasty 5 months ago. Initially had good motion but fell on 2 occasions. No sign of implant damage or infection. General anesthetic administered. Examination revealed motion limitation to 85?. Gentle pressure improved motion to 115? easily. 120? with pressure. Adhesions at the superolateral joint and lateral retinacular area were felt to release. Patient tolerated the procedure well. No complications. Complications No immediate complications Condition Stable Disposition PACU [facility] Billing Surgery - Charge Forward: Surgery Billing
== END 2021-12-06 11:45 | disposition home or self-care (01) ==
PROVIDERS: PCP Family Medicine; Visit Provider Orthopaedic Surgery
PROC: (CPT 27570; principal; 2021-12-06 10:00)
DX: M24.561 Contracture, right knee (principal); Z96.651 Presence of right artificial knee joint
CPT/HCPCS: 27570; A9270; J1030; J1040; J1100; J1885; J2405; J2704; J3010; J3301; J7120

== ENCOUNTER 2022-10-02 14:46 | Outpatient (CLI) | payer MEDICARE, SELFPAY ==
--- NOTE | ~2022-10-02 | XR_ITS ---
XR knee LT 3V 10/02/2022 15:23 Indication: Left posterior knee pain Procedure: 3 views left knee Comparison: No prior studies for comparison. Findings: There is moderate tricompartment osteoarthritis. Small joint effusion. No fracture or traum atic malalignment. Osteopenia. Impression: 1: Moderate tricompartment osteoarthritis of the left knee. Reviewed, dictated and finalized at location L. Impression: 1: Moderate tricompartment osteoarthritis of the left knee.
--- NOTE | ~2022-10-02 | US_ITS ---
EXAMINATION: US soft tissue LE LT DATE: 10/02/2022 15:20 INDICATION: Posterior left knee pain TECHNIQUE: Multiple grayscale and Doppler ultrasound images of the posterior fossa the left knee were obtained. COMPARISON: None FINDINGS: No Haines's cyst or other abnormal masses or fluid collections identified at the left popliteal fossa. Small amount of joint fluid along the medial femoral condyle which remains within normal limits. IMPRESSION: 1. No Haines's cyst or other abnormal masses or fluid collections at the left popliteal fossa. Reviewed, dictated and finalized at location A. IMPRESSION: 1. No Haines's cyst or other abnormal masses or fluid collections at the left po pliteal fossa.
== END 2022-10-02 14:47 | disposition home or self-care (01) ==
PROVIDERS: PCP Family Medicine; Referring Provider Orthopaedic Surgery
DX: M25.562 Pain in left knee (principal); M17.12 Unilateral primary osteoarthritis, left knee
CPT/HCPCS: 73562; 76882

== ENCOUNTER 2022-10-15 11:19 | Outpatient (CLI) | payer MEDICARE, SELFPAY ==
--- NOTE | ~2022-10-15 | XR_ITS ---
Left Knee Technique: AP, lateral, and sunrise views were obtained. Clinical History: Effusion Findings: No fracture or dislocation is seen. There is mild to moderate tricompartmental degenerative change. Soft tissues are unremarkable. No joint effusion is seen. Impression: Mild to moderate tricompartmental degenerative change. Reviewed, dictated and finalized at location . Impression: Mild to moderate tricompartmental degenerative change.
== END 2022-10-15 11:20 | disposition home or self-care (01) ==
PROVIDERS: PCP Family Medicine; Visit Provider Orthopaedic Surgery
DX: M25.462 Effusion, left knee (principal); M17.12 Unilateral primary osteoarthritis, left knee
CPT/HCPCS: 73564

== ENCOUNTER 2022-10-24 13:38 | Outpatient (CLI) | payer MEDICARE, SELFPAY ==
--- NOTE | ~2022-10-24 | CT_ITS ---
EXAMINATION: CT LE LT wo con DATE: 10/24/2022 14:26 INDICATION: Left knee primary osteoarthritis. Preoperative planning. TECHNIQUE: Computed tomography (CT) of the left lower limb was performed without intravenous contrast . Automated exposure control and iterative reconstruction technique were employed. The dose-length pr oduct was 1457.89 mGy-cm. COMPARISON: Left knee radiographs 10/15/2022 FINDINGS: The left hip joint demonstrates normal bone alignment. No fracture. There is mild left hip osteoarthritis. The left knee demonstrates normal bone alignment. There is moderate osteoarthritis of medial and patellofemoral compartments and and mild osteoarthritis of lateral compartment. There is a small knee joint effusion. There is mild left ankle joint osteoarthritis. IMPRESSION: 1. Moderate left knee osteoarthritis. 2. Small left knee joint effusion. 3. Mild left hip and ankle joint osteoarthritis. Reviewed, dictated and finalized at location E.
--- NOTE | 2022-10-24 13:43 | ECG_ITS ---
Measurements Intervals [place] Rate: 60 P: 66 DE: 128 QRS: 26 QRSD: 78 T: 16 QT: 385 QTc: 386 Interpretive Statements SINUS RHYTHM POSSIBLE LEFT ATRIAL ENLARGEMENT BORDERLINE ECG COMPARED TO ECG 04/13/2021 10:12:50 NO SIGNIFICANT CHANGES Electronically Signed On 10-24-2022 14:16:32 CDT by Prosper Constantino D.O.
[2022-10-24 13:53] LABS: Albumin Level 4.1 g/dL (3.5-5.1); Estimated Glomerular Filt Rate > 60
== END 2022-10-24 13:39 | disposition home or self-care (01) ==
PROVIDERS: PCP Family Medicine; Visit Provider Orthopaedic Surgery
DX: M17.12 Unilateral primary osteoarthritis, left knee (principal); M25.462 Effusion, left knee; M16.12 Unilateral primary osteoarthritis, left hip; M19.072 Primary osteoarthritis, left ankle and foot; R94.31 Abnormal electrocardiogram [ECG] [EKG]
CPT/HCPCS: 36415; 73700; 82040; 82565; 93005

== ENCOUNTER 2022-12-12 10:06 | Outpatient (CLI) | payer MEDICARE, SELFPAY ==
[2022-12-12 11:15] LABS: Basophils Absolute Auto 0.1 K/mm3 (0.0-0.1); Eosinophils Absolute Auto 0.4 K/mm3 (0-0.3); Eosinophils Percent Auto 5.8 % (0-4.4); Hematocrit 40.8 % (37.0-47.0); Hemoglobin 12.9 g/dL (12.0-15.0); Immature Granulocyte Absolute 0.02 K/mm3 (0.00-0.031); Immature Granulocyte Percent A 0.3 % (0-0.5); Lymphocytes Absolute Auto 2.26 K/mm3 (0.9-3.2); Lymphocytes Percent Auto 33.5 % (18.3-44.2); Mean Corpuscular HGB Conc 31.6 g/dl (32-36); Mean Corpuscular Hemoglobin 27.4 pg (26-34); Mean Corpuscular Volume 86.6 fl (80-100); Mean Platelet Volume 10.1 fl (7.4-10.4); Monocytes Absolute Auto 0.5 K/mm3 (0.1-0.6); Monocytes Percent Auto 7.3 % (2.6-8.5); Neutrophils Absolute Auto 3.5 K/mm3 (1.3-6.7); Neutrophils Percent Auto 52.1 % (45.5-73.1); Platelet Count Result 279 k/mm3 (150-375); Red Blood Count 4.71 M/mm3 (4.2-5.4); Red Cell Distribution Width 15.6 % (11.5-14.5); White Blood Count 6.7 K/mm3 (4.5-10.0)
[2022-12-12 11:25] LABS: Albumin Level 4.3 g/dL (3.5-5.1); Estimated Glomerular Filt Rate > 60; Glucose 93 mg/dL (65-110)
[2022-12-12 11:33] LABS: Urine Cotinine NEGATIVE
[2022-12-12 11:35] LABS: Hemoglobin A1C 5.5 % (<5.7)
== END 2022-12-12 10:07 | disposition home or self-care (01) ==
LOC: ANHSURGERY 10:09
PROVIDERS: PCP Family Medicine; Visit Provider Orthopaedic Surgery
DX: M17.12 Unilateral primary osteoarthritis, left knee (principal); Z01.818 Encounter for other preprocedural examination
CPT/HCPCS: 80307; 82040; 82565; 82947; 83036; 85025; 87081

== ENCOUNTER 2023-01-07 01:13 | Day surgery (SDC) | payer MEDICARE, SELFPAY ==
--- NOTE | 2022-12-12 09:37 | PC.NURSE ---
PRE-OP INSTRUCTIONS, PLEASE READ CAREFULLY Report to the Outpatient Waiting Room, entrance under the green pavilion located off [facility], at time _1000_ on date _01/07/23_. Planned Procedure Time: _1200_. PACK A SMALL OVERNIGHT BAG AND LEAVE IN THE CAR Time changes happen often and if your time is changed the preop area will call you the afternoon before. - You and your visitor will be asked to self-screen and do not enter if you have any COVID symptoms. - A mask is optional within the hospital at this time. -VISITING HOURS 8AM-8PM Patients may have clear liquids (water, carbonated beverages, clear teas, apple juice) until 3 hours prior to surgery (0900 AM) with a maximum of 20 ounces. - No food from midnight until time of surgery Take the following medications with a SIP of water the morning of surgery: DO NOT STOP ANY OF YOUR OTHER PRESCRIPTION MEDICATIONS PRIOR TO SURGERY ?EXCEPT THE FOLLOWING Medications to discontinue per physician Date to take last dose Please no make-up, nail uruguayan, hairspray, perfume, deodorant, or body powder the day of surgery. No jewelry (including any body piercings) or valuables the day of surgery, leave them at home. Please take a shower or bath the night before, or the morning of, surgery with an antibacterial soap. Wear comfortable, loose fitting clothing. - Jewelry must be removed prior to entering the operating room. Rings and piercings that are not removed may be cut off. - The hospital will not accept responsibility for valuables. - Please leave all valuables, including medications, at home the day of surgery. If you are going home after surgery, a licensed package delivery driver must drive you home. - NO public transportation without another adult if you receive anesthesia. - We recommend that an adult stay with you for 24 hours following discharge. - We also recommend that you do not drive, make important decision, drink alcoholic beverages, or take any drugs that were not prescribed by your health care provider for at least 24 hours after your discharge time. Follow any additional instructions given to you from your surgeon. If you or anyone in your household have experienced Covid symptoms in the past week, please notify your surgeon or the nurse liaison at the phone number below for possible testing. Instructions given to _PATIENT_and asked if any additional questions and then verbalized understanding. Patient advised to call surgeon office or pre surgery nurse liaison [phone] if any additional questions.
--- NOTE | 2022-12-12 09:42 | PC.NURSE ---
PRE-OP INSTRUCTIONS, PLEASE READ CAREFULLY Report to the Outpatient Waiting Room, entrance under the green pavilion located off [facility], at time _1000_ on date _01/07/23_. Planned Procedure Time: _1200_. PACK A SMALL OVERNIGHT BAG AND LEAVE IN THE CAR ALONG WITH YOUR WALKER Time changes happen often and if your time is changed the preop area will call you the afternoon before. - You and your visitor will be asked to self-screen and do not enter if you have any COVID symptoms. - A mask is optional within the hospital at this time. -VISITING HOURS 8AM-8PM Patients may have clear liquids (water, carbonated beverages, clear teas, apple juice) until 3 hours prior to surgery (0900 AM) with a maximum of 20 ounces. - No food from midnight until time of surgery Take the following medications with a SIP of water the morning of surgery: _TYLENOL IF NEEDED_ DO NOT STOP ANY OF YOUR OTHER PRESCRIPTION MEDICATIONS PRIOR TO SURGERY ?EXCEPT THE FOLLOWING Medications to discontinue per DR. LIU -_IBUPROFEN 7 DAYS PRIOR TO SURGERY, Date to take last dose 12/30/22_ Medications to discontinue per ANESTHESIA - _APPLE CIDER VINEGAR, [facility] 3 DAYS PRIOR TO SURGERY, Date to take last dose 01/03/23_ Please no make-up, nail colombian, hairspray, perfume, deodorant, or body powder the day of surgery. No jewelry (including any body piercings) or valuables the day of surgery, leave them at home. Please take a shower or bath the night before, or the morning of, surgery with an antibacterial soap. Wear comfortable, loose fitting clothing. - Jewelry must be removed prior to entering the operating room. Rings and piercings that are not removed may be cut off. - The hospital will not accept responsibility for valuables. - Please leave all valuables, including medications, at home the day of surgery. If you are going home after surgery, a licensed pile driver must drive you home. - NO public transportation without another adult if you receive anesthesia. - We recommend that an adult stay with you for 24 hours following discharge. - We also recommend that you do not drive, make important decision, drink alcoholic beverages, or take any drugs that were not prescribed by your health care provider for at least 24 hours after your discharge time. Follow any additional instructions given to you from your surgeon. If you or anyone in your household have experienced Covid symptoms in the past week, please notify your surgeon or the nurse liaison at the phone number below for possible testing. Telephone instructions given to _PATIENT_and asked if any additional questions and then verbalized understanding. Patient advised to call surgeon office or pre surgery nurse liaison [phone] if any additional questions.
[2022-12-12 10:25] VITALS: BP 136/70; PULSE 62; RESP 18; TEMP 36.7; O2SAT 100; BMI 29.1
[2023-01-07] VITALS (14 sets, daily range): BP systolic 109–151; BP diastolic 57–74; PULSE 64–102; RESP 12–21; TEMP 35.7–37.7; O2SAT 90–100; BMI 29.2
--- NOTE | ~2023-01-07 | XR_ITS ---
EXAMINATION: [id number] DATE: 01/07/2023 14:16 INDICATION: Postoperative evaluation following left total knee arthroplasty. TECHNIQUE: Anteroposterior and lateral views of the left knee were obtained. COMPARISON: 10/15/2022 FINDINGS: Left total knee arthroplasty with patellar resurfacing appears well seated and in near anatomic align ment. No fractures identified. Expected postoperative subcutaneous and intra-articular gas. IMPRESSION: 1. Left total knee arthroplasty, negative for postoperative purposes. Reviewed, dictated and finalized at location A.
[2023-01-07] MEDS: LACTATED RINGERS 1,000 ML 30 ML IV CONT ×2 (10:35→14:04)
[2023-01-07] MEDS: ACETAMINOPHEN 500 MG TABLET 1000 MG PO ×3 (10:46→22:00)
--- NOTE | 2023-01-07 11:14 | WPDANESEPPF ---
Anes - Initial Pre Proc Eval Procedure: Operation Date: 01/07/23 12:00 Proposed Procedures p Left Custom Total Knee Arthroplasty - Momo Arguelles MD Date/Time: 01/07/23 11:14 Surgeon: Momo Arguelles MD Pre Op Diagnosis: Prim O A Lt Knee Patient Data Age: 72 Gender: F Height: 1.5 m Weight: 65.8 kg Last Vital Signs Temp 98.1 F 01/07/23 10:00 Pulse 75 01/07/23 10:00 Resp 16 01/07/23 10:00 BP 151/69 H 01/07/23 10:00 Pulse Ox 100 01/07/23 10:00 O2 Del Method Room Air 01/07/23 10:00 Allergies Allergy/AdvReac Type Severity Reaction Status Date / Time Penicillins Allergy Unknown Unknown - Verified 01/07/23 10:56 A CHILD, AGE 5 aspirin AdvReac Mild Congested Verified 01/07/23 10:56 Home Medications Medication Instructions Recorded Confirmed Type apple cider vinegar 2 gummy QAM 05/31/21 12/13/22 History [facility] 1 tab-cap DAILY 12/12/22 12/12/22 History acetaminophen 500 mg tablet 1,000 mg PO Q6H PRN Pain 12/12/22 12/12/22 History ibuprofen 200 mg tablet 600 mg PO Q6H PRN Pain 12/12/22 12/12/22 History Laboratory Tests 01/07/23 10:40 Blood Type Pending Antibody Screen Pending Patient hx anesthesia problems: post op nausea/vomiting Family hx anesthesia problems: none Results Review: All pre-operative results and documents have been reviewed as part of the pre-operative evaluation. [facility] Past Medical History Medical History History of fracture of arm x3 Surgeries Osteoarthritis of right knee Osteoarthritis of right shoulder Surgical History Surgical History History of hysterectomy History of shoulder surgery (~03/06/11) Arth.Extensive Debridement & Removal Loose Body History of tonsillectomy History of total replacement of right shoulder joint (~02/11/20) Family History Family History Father Heart disease Parkinsons DVT (deep venous thrombosis) Mother Kidney failure Knee joint replacement status Frozen shoulder Grandparent Heart disease Son Neuroendocrine cancer Social History Social History Smoking status: Never smoker Second hand tobacco smoke exposure: No Additional smoking assessment comments: PT DENIES ALL FORMS OF TOBACCO USE Alcohol intake: never Substance use: never Substance use type: does not use Lack of Transportation: No Lack of Food: Never True Current Housing: I Have Housing Concerned About Future Housing: No Difficulty Paying Gas/Electric Bills: No Difficulty Paying for Meds: No Currently Unemployed: No Education: Bachelor's Degree Difficulty w/ Childcare or Family Care: No Living arrangements: with family Spiritual care concerns: No Anes - Eval Final PreProcedure Day of Procedure 01/07/23 11:14 Patient weight: normal Heart: regular rate and rhythm Lungs: clear to auscultation Airway: Mallampati scale class II Neurological: alert and oriented Last oral intake: >/= 8 hours ASA classification: II Emergent: no Anesthetic plan: proceed Anesthesia type and monitoring: general LMA and standard monitoring Results Review: All pre-operative results and documents have been reviewed as part of the pre-operative evaluation. Informed Consent: The patient's anesthetic plan and its attendant risks and benefits were discussed with the patient/family/POA. Questions were solicited and answers provided to the satisfaction of the patient/family/POA.
--- NOTE | 2023-01-07 11:31 | WPDHPUPDATE1 ---
History and Physical Update Update Date/Time: 01/07/23 11:31 History and Physical has been reviewed, including an updated exam of the patient. There are NO changes in the patient's condition. Risks, benefits, and alternatives have been discussed and questions answered. Patient agrees to proceed with procedure.
[2023-01-07] MEDS: TRANEXAMIC ACID 1,000MG/ISO100 1,000 MG/100 ML BAG 200 MG IVPB (11:40)
[2023-01-07] MEDS: ceFAZolin 2 GM/D5W 50 ML 2 GM/50 ML BAG IVPB ×2 (12:03→20:48)
--- NOTE | 2023-01-07 12:05 | WPDANESPNB ---
Anes - Peripheral Nerve Block Date/Time: 01/07/23 12:05 I have discussed with the patient/family/POA the placement of a peripheral nerve block for post-operative pain management, including associated risks, benefits, complications, and side effects. Alternative methods of post-operative analgesia were detailed. Questions were solicited and answers provided to the satisfaction of the patient/family/POA. Time-Out: A pre-procedural Time-Out was completed immediately before starting the procedure and confirmed: Patient Identification, Site, Procedure, Patient Position and the Availability of Requisite Equipment. Clinical Indications: Acute post-operative pain management requested by the operative surgeon. Nerve Block Insertion Note Anes-nerve block: adductor canal left Patient position: supine Skin prep: chlorhexidine Needle: 22 gauge, stimulating, insulated echogenic needle. Needle length: 80 mm Technique: ultrasound Injectate: bupivacaine 0.5% with epi 5 mcg/ml (30 cc no epi) Observations: tolerated well Complications: none Procedure start time:: 1150 Procedure end time:: 115
[2023-01-07] MEDS: GENTAMICIN BONE CEMENT REFOBACIN 1 EACH TOPICAL (13:18)
--- NOTE | 2023-01-07 14:20 | P.OP_ITS ---
Procedure Note - Detailed Date of Procedure 01/07/23 Pre-op Diagnosis Prim O A Lt Knee Post-op Diagnosis Same Procedure Performed Total knee arthroplasty, left Surgeon Momo Arguelles MD Solar [employer] Installation Manager Brianna Pepper PA-C Anesthesia General and Regional (Subsartorial block.) Findings Satisfactory bone quality. Mild medial release and PCL release. Description of Procedure Preoperative antibiotics were given. The limb was prepped and draped in the usual sterile fashion with a well-padded tourniquet high on the thigh. The limb was exsanguinated and the tourniquet inflated to 300 mmHg. A longitudinal incision was created just medial to the patella. A trivector approach to the knee was performed. Arthrotomy was taken down through the joint capsule. No significant releases were initially taken. The femur was exposed and the F1 jig was applied. The coring tool was used to remove the cartilage for the F2 jig to sit flush with the bone. The jig was pinned and the distal cut carefully taken. Caliper measurements confirmed appropriate bony resections according to the preoperative templated plan. The F4 cutting jig for the femur was applied, at the standard rotation. The AP and anterior chamfer cuts were taken. The F5 jig was applied and the posterior chamfer cuts were taken. The tibia was prepared using the T1 jig, after removing cartilage for the jig contact points. Proper alignment was checked with the alignment loretta. The tibia was cut using the T1u guide. Gap balancing was performed. Gap measurements were taken and the knee was trialed. Excellent alignment and soft tissue balancing was confirmed. The posterior cruciate ligament was recessed along the proximal tibia. The patella was cut for resurfacing. Three lug holes were drilled. Meniscal remnants were removed. The trial components were assembled. Excellent range of motion and proper soft tissue balancing were confirmed throughout the full range of motion. Patellar tracking was excellent. The knee was copiously irrigated periodically throughout the procedure. The real implants were cemented into position. Excess cement was carefully removed. The wound was closed in layers with interrupted #1 Vicryl suture, #2 strata fix suture, 2-0 strata fix suture, 3-0 strata fix suture. Steri-Strips placed on the skin with the knee flexed. Sterile bulky dressing applied. The patient was brought to the recovery room in stable condition. There were no complications. Physician general surgery physician assistant, Brianna Pepper PA-C, required for surgery; including patient positioning, draping, tissue retraction, maintaining instrument position, cement removal, wound closure, and dressing placement. Implants Conform[employer] Imprint total knee arthroplasty. Cemented. Cruciate retaining. 7 mm insert. 32 mm round patella. Estimated Blood Loss 50 Drains No Complications No immediate complications Condition Stable Disposition PACU [facility] Billing Surgery - Charge Forward: Surgery Billing
[2023-01-07] MEDS: fentaNYL CITRATE INJ (*CRX) 100 MCG/2 ML VIAL 25 MCG IV PUSH ×2 (14:40→14:44)
[2023-01-07] MEDS: MELOXICAM 7.5 MG TABLET PO (16:34)
[2023-01-07] MEDS: SODIUM CHLORIDE 0.9% IV 1,000 ML 125 ML IV CONT (16:35)
[2023-01-07] MEDS: SENNA/DOCUSATE SODIUM TABLET 2 TAB PO (16:35)
[2023-01-07] MEDS: ASPIRIN 81 MG ENTERIC TABLET PO (16:35)
--- NOTE | 2023-01-07 16:40 | ADMGEN ---
This patient, Amanda Ashford, was admitted to [facility] Surg Room 311-01. Patient/family oriented to hospital policies and general routines including ID bracelet, bed and alarms, visiting hours, pain management, procedures, bathroom and other care routines, personal items, smoking policy, room service/diet, and visiting hours. Information on how to activate the Rapid Response Team has been discussed. Patient/Family are encouraged to report perceived risks to care and to ask questions if they do not understand what they are told or what they should do.
[2023-01-07] MEDS: oxyCODONE HCL (*CRX) 5 MG TAB IR PO (20:46)
[2023-01-07] MEDS: FAMOTIDINE 20 MG TABLET PO (20:46)
[2023-01-08 01:41] VITALS: BP 94/56; PULSE 81; RESP 18; TEMP 36.4; O2SAT 95
[2023-01-08] MEDS: ACETAMINOPHEN 500 MG TABLET 1000 MG PO ×2 (03:17→09:12)
[2023-01-08] MEDS: ceFAZolin 2 GM/D5W 50 ML 2 GM/50 ML BAG IVPB ×2 (03:17→10:37)
[2023-01-08] MEDS: oxyCODONE HCL (*CRX) 5 MG TAB IR PO ×2 (03:48→09:13)
[2023-01-08 05:41] VITALS: BP 98/53; PULSE 78; RESP 18; TEMP 36.6; O2SAT 95
[2023-01-08 06:18] LABS: Basophils Percent Auto 0.3 % (0.2-1.2); Eosinophils Percent Auto 0.2 % (0-4.4); Hematocrit 31.3 % (37.0-47.0); Hemoglobin 9.8 g/dL (12.0-15.0); Immature Granulocyte Absolute 0.06 K/mm3 (0.00-0.031); Immature Granulocyte Percent A 0.5 % (0-0.5); Lymphocytes Absolute Auto 1.95 K/mm3 (0.9-3.2); Lymphocytes Percent Auto 15.4 % (18.3-44.2); Mean Corpuscular HGB Conc 31.3 g/dl (32-36); Mean Corpuscular Hemoglobin 27.7 pg (26-34); Mean Corpuscular Volume 88.4 fl (80-100); Mean Platelet Volume 10.5 fl (7.4-10.4); Monocytes Absolute Auto 1.2 K/mm3 (0.1-0.6); Monocytes Percent Auto 9.3 % (2.6-8.5); Neutrophils Absolute Auto 9.4 K/mm3 (1.3-6.7); Neutrophils Percent Auto 74.3 % (45.5-73.1); Platelet Count Result 253 k/mm3 (150-375); Red Blood Count 3.54 M/mm3 (4.2-5.4); Red Cell Distribution Width 14.6 % (11.5-14.5); White Blood Count 12.7 K/mm3 (4.5-10.0)
[2023-01-08 06:26] LABS: Anion Gap 4 mmol/L (8-16); Blood Urea Nitrogen 13 mg/dL (7-17); Calcium 8.3 mg/dL (8.4-10.2); Carbon Dioxide 26 mmol/L (22-30); Chloride 106 mmol/L (98-107); Estimated Glomerular Filt Rate > 60; Glucose 109 mg/dL (65-110); Potassium 4.1 mmol/L (3.4-5.0); Sodium 136 mmol/L (137-145)
--- NOTE | 2023-01-08 07:31 | PM.DS ---
DS: Admitting Diagnosis Discharge Date 01/08/23 Admitting Diagnosis Left knee osteoarthritis. DS: Discharge Diagnosis Discharge Diagnosis (1) Status post total left knee replacement: Code(s): Z96.652 - Presence of left artificial knee joint Status: Acute Plan Postop day 1: Left total Knee arthroplasty. Patient tolerated procedure well. No complications. Pain manageable with pain medication. No numbness or tingling. We had a lengthy discussion regarding postoperative wound care, limitations, expectations, and exercises. Patient shows good understanding. He has had initial physical therapy and is tolerating it well. DVT prophylaxis: 81 mg baby aspirin b.i.d. for 14 days. Compression socks for 3 weeks. Short frequent walks. Pain medication: Percocet. Prednisone. Meloxicam. Patient has followup appointment with Dr. Arguelles in 3 weeks. DS: Summary Hospital Course Reason for hospitalization: Total knee arthroplasty Hospital Course: Patient tolerated procedure well. Has had initial PT/OT. No complications. Pain well managed. Status at Discharge Functional status at discharge: uses cane/walker Overall status at discharge: patient is progressing back to baseline Time Spent with Patient Time attestation: Total time spent providing and/or coordinating discharge services: Exam Narrative: Overweight 72 y/o female. Resting comfortably in chair. No acute distress. A&O x3. Wearing compression socks bilaterally. Dressing intact with no drainage. Moderate swelling. No ecchymosis. No erythema. No hematoma. Good early range of motion. Calf nontender. Neurologic status intact. No varicosities. Distal pulses palpable. DS: Data Data Completed and Pending Labs on day of discharge: Labs from last 24 hours 01/08/23 01/07/23 06:02 10:40 WBC 12.7 H RBC 3.54 L Hgb 9.8 L D Hct 31.3 L MCV 88.4 MCH 27.7 MCHC 31.3 L RDW 14.6 H Plt Count 253 MPV 10.5 H Immature Gran % (Auto) 0.5 Neut % (Auto) 74.3 H Lymph % (Auto) 15.4 L Addison % (Auto) 9.3 H Eos % (Auto) 0.2 Baso % (Auto) 0.3 Lymph # (Auto) 1.95 Addison # (Auto) 1.2 H Eos # (Auto) 0.0 Baso # (Auto) 0.0 Abs Immat Gran (auto) 0.06 H Absolute Neuts (auto) 9.4 H Absolute Nucleated RBC 0.0 Nucleated RBC % 0.0 Sodium 136 L Potassium 4.1 Chloride 106 Carbon Dioxide 26 Anion Gap 4 L BUN 13 Creatinine 0.60 L Estim Creat Clear Calc Not Reportable Estimated GFR > 60 Glucose 109 Calcium 8.3 L Blood Type A Positive Antibody Screen Negative Discharge Plan Discharge Patient Disposition: Home, Self-Care Discharge Instructions: See green instruction sheets Stand Alone Forms: General Discharge Instructions Follow-up/Referrals: Brianna Pepper PA [Physician Ledger Poster] - Discharge Medications: New meloxicam 15 mg tablet 15 mg PO DAILY Qty: 30 0RF Rx Instructions: Cut in half. Take 1/2 in morning and 1/2 at night. Take with food. Stop if stomach upset. prednisone 5 mg tablet 5 mg PO DAILY 21 Days Qty: 21 0RF oxycodone-acetaminophen 5-325 mg tablet 1 - 2 tablet PO Q4-6H MDD 6 PRN (Reason: pain) Qty: 30 0RF Continued apple cider vinegar 2 gummy QAM acetaminophen 500 mg Tablet 1,000 mg PO Q6H PRN (Reason: Pain) ibuprofen 200 mg Tablet 600 mg PO Q6H PRN (Reason: Pain) [facility] 1 tab-cap DAILY
[2023-01-08 08:00] VITALS: BP 117/63; PULSE 79; RESP 16; TEMP 36.1; O2SAT 98
[2023-01-08] MEDS: predniSONE 5 MG TABLET PO (09:13)
[2023-01-08] MEDS: MELOXICAM 7.5 MG TABLET PO (09:13)
[2023-01-08] MEDS: ASPIRIN 81 MG ENTERIC TABLET PO (09:13)
[2023-01-08] MEDS: SENNA/DOCUSATE SODIUM TABLET 2 TAB PO (09:13)
[2023-01-08] MEDS: FAMOTIDINE 20 MG TABLET PO (09:14)
[2023-01-08] MEDS: polyethylene glycoL 3350 17 GM POWD.PACK PO (09:14)
== END 2023-01-08 11:15 | disposition home or self-care (01) ==
LOC: ANHSURGERY 14:04 → ANH3MEDSUR 16:13
PROVIDERS: Physician Assistant Surgical; PCP Family Medicine; Visit Provider Orthopaedic Surgery
PROC: (CPT 27447; principal; 2023-01-07 12:00)
DX: M17.12 Unilateral primary osteoarthritis, left knee (principal); G89.18 Other acute postprocedural pain; Z82.49 Family history of ischemic heart disease and other diseases of the circulatory system
CPT/HCPCS: 64447; 27447; 36415; 73560; 80048; 85025; 86850; 86900; 86901; 97110; 97161; 97165; A9270; C1713; C1776; J0171; J0360; J0690; J1100; J1170; J1885; J2250; J2270; J2405; J2704; J2795; J3010; J7030; J7120; J7512

== ENCOUNTER 2024-01-06 09:05 | Outpatient (CLI) | payer MEDICARE, SELFPAY ==
--- NOTE | ~2024-01-06 | XR_ITS ---
EXAMINATION: XR knee LT 3V DATE: 01/06/2024 09:22 INDICATION: Total left knee arthroplasty. TECHNIQUE: 3 views of left knee including standing views were obtained. COMPARISON: Left knee radiographs 02/25/2023 FINDINGS: There is a total left knee arthroplasty with patellar resurfacing in near-anatomic alignmen t. No fracture. No periprosthetic lucency to suggest loosening or infection. There is a small knee carmencita int effusion. IMPRESSION: 1. Total left knee arthroplasty in near-anatomic alignment. 2. Small left knee joint effusion. Reviewed, dictated and finalized at location A.
== END 2024-01-06 09:06 | disposition home or self-care (01) ==
LOC: ANHIMG 09:09
PROVIDERS: PCP Family Medicine; Visit Provider Orthopaedic Surgery
DX: M25.462 Effusion, left knee (principal); Z96.652 Presence of left artificial knee joint
CPT/HCPCS: 73562

== ENCOUNTER 2024-01-20 13:52 | Outpatient (CLI) | payer MEDICARE, SELFPAY ==
--- NOTE | ~2024-01-20 | XR_ITS ---
AP and lateral views of the left hip Clinical history: Pain Findings: No acute fracture or dislocation is seen. Osseous alignment is anatomic. Left hip joint is intact. Soft tissues are unremarkable. Impression: No significant abnormality is seen. Reviewed, dictated and finalized at location M. Impression: No significant abnormality is seen.
--- NOTE | ~2024-01-20 | US_ITS ---
EXAMINATION: US venous doppler [facility] DATE: 01/20/2024 14:04 INDICATION: Swelling TECHNIQUE: Grayscale ultrasound images without and with compression and Doppler ultrasound images of the left lower extremity veins were obtained. COMPARISON: None. FINDINGS: The visualized portions of left common femoral vein, profunda (deep) femoral vein, femoral vein, popl iteal vein and greater saphenous vein outflow are patent and easily compressible. Noncompressibility and absence of flow within the left posterior tibial vein and left peroneal vein. Augmentation below the knee was deferred. IMPRESSION: 1. Noncompressibility and absence of flow below the left knee within the left posterior tibial vein, (as detailed above). Reviewed, dictated and finalized at location A.
[2024-01-20 13:20] LABS: Erythrocyte Sedimentation Rate 15 mm/hr (0-20)
== END 2024-01-20 13:53 | disposition home or self-care (01) ==
PROVIDERS: PCP Family Medicine; Visit Provider Orthopaedic Surgery
DX: M25.462 Effusion, left knee (principal); Z96.652 Presence of left artificial knee joint; M25.552 Pain in left hip; R60.0 Localized edema
CPT/HCPCS: 36415; 73502; 85652; 93971

== ENCOUNTER 2024-01-21 09:41 | Outpatient (CLI) | payer MEDICARE, SELFPAY ==
--- NOTE | ~2024-01-21 | CT_ITS ---
EXAMINATION: CTA chest PE protocol DATE: 01/21/2024 11:03 INDICATION: Shortness of breath. TECHNIQUE: Computed tomography angiography (CTA) of the chest was performed with 100 mL Omnipaque-350 intravenous contrast timed to evaluate the pulmonary arteries. Coronal maximum intensity projection 3D-reconstructions were created by the technologist. Automated exposure control and iterative reconst ruction technique were employed. The dose-length product was 240.87 mGy-cm. COMPARISON: None. FINDINGS: The lungs demonstrate mild atelectasis. There are airspace opacities in right lower lobe. N o pleural effusion. The heart size is normal. No pericardial effusion. The central pulmonary arteries are enlarged, consistent with pulmonary arterial hypertension. There is no pulmonary embolus. There is a total right shoulder arthroplasty. There is mild thoracic spondylosis. IMPRESSION: 1. No pulmonary embolus. 2. Airspace opacities in right lung lower lobe, consistent with atelectasis versus pneumonia. Reviewed, dictated and finalized at location A. IMPRESSION: 1. No pulmonary embolus. 2. Airspace opacities in right lung lower lobe, consistent with atelectasis gamaliel claudio pneumonia.
[2024-01-21 10:35] LABS: Anion Gap 8 mmol/L (4-12); Blood Urea Nitrogen 14 mg/dL (7-17); Calcium 9.5 mg/dL (8.4-10.2); Carbon Dioxide 28 mmol/L (22-30); Chloride 105 mmol/L (98-107); Estimated Glomerular Filt Rate > 60; Glucose 93 mg/dL (65-110); Potassium 4.2 mmol/L (3.4-5.0); Sodium 141 mmol/L (137-145)
[2024-01-21 11:08] LABS: D Dimer 1.79 ug/mL (<0.48)
== END 2024-01-21 09:42 | disposition home or self-care (01) ==
LOC: ANHIMG 09:48
PROVIDERS: PCP Family Medicine; Visit Provider Family Medicine
DX: I82.402 Acute embolism and thrombosis of unspecified deep veins of left lower extremity (principal); M25.562 Pain in left knee; R06.02 Shortness of breath; Z96.652 Presence of left artificial knee joint; R91.8 Other nonspecific abnormal finding of lung field
CPT/HCPCS: 36415; 71275; 80048; 85380; Q9967

== ENCOUNTER 2024-04-28 13:48 | Outpatient (CLI) | payer MEDICARE, SELFPAY ==
--- NOTE | ~2024-04-28 | US_ITS ---
LEFT LOWER EXTREMITY VENOUS ULTRASOUND Ordering provider: Naye Jackson MD History: . F/U from previous US . Comparison: None. FINDINGS: --COMMON FEMORAL: Patent and free of thrombus. Normal compressibility, phasic flow and augmentation. --PROXIMAL SUPERFICIAL FEMORAL: Patent and free of thrombus. Normal compressibility, phasic flow and augmentation. --DISTAL SUPERFICIAL FEMORAL: Patent and free of thrombus. Normal compressibility, phasic flow and au gmentation. --POPLITEAL: Patent and free of thrombus. Normal compressibility, phasic flow and augmentation. --POSTERIOR TIBIAL: Patent and free of thrombus. Normal compressibility, phasic flow and augmentation . Cystic lesion seen in the popliteal fossa measuring 1 x 2.9 x 3 cm suggestive of Haines's cyst.. IMPRESSION: Negative left lower extremity venous US. No deep vein thrombosis. Reviewed, dictated and finalized at location A. NT RESOLUTION SPECIALIST
== END 2024-04-28 13:49 | disposition home or self-care (01) ==
PROVIDERS: PCP Family Medicine; Visit Provider Family Medicine
DX: I82.402 Acute embolism and thrombosis of unspecified deep veins of left lower extremity (principal)
CPT/HCPCS: 93971

== ENCOUNTER 2024-12-17 16:56 | Outpatient (CLI) | payer MEDICARE, SELFPAY ==
--- OUTSIDE RECORDS SUMMARY | 2024-03-04 03:45 | XMS_ITS ---
Author Organization [facility] Address [address] [place] [id number] Care Team Providers Care Venetian Blind Installer Name Role Phone Dr. Naye Jackson Primary Care Provider [phone] Results Component Value Reference Range Notes Outreach PT/INR {POCT} Reviewed date:03/04/2024 12:00:00 AM Interpretation: Performing Lab: Notes/Report: INR Perform Location POCT [facility] INR POCT 2.20 seconds REASON FOR VISIT INR Check Vital Signs Temperature 97.0 degrees Fahrenheit 03/04/20 24 Blood pressure systolic 124 mm Hg 03/04/20 24 Blood pressure diastolic 78 mm Hg 024 Heart Rate 72 /min 03/04/2024 Respiratory Rate 18 /min 03/04/2024 Weight 153.20 lbs 03/04/2024 Oximetry 96 % 03/04/2024 Weight-kg 69.49 kg 03/04/2024 Encounters Encounter Location Date Provider Diagnosis [address] [address] 03/04/2024 Dr. Naye Jackson alf (current) use of anticoagulants Z79.01 ; Acute embolism and thrombosis of unspecified deep veins of left lower extremity I82.402 and Pain in right knee M25.561 Assessments Encounter Date Diagnosis (ICD Code) Assessment Notes Treatment Notes Treatment Clinical Notes Section Notes 03/04/2024 alf (current) use of anticoagulants (ICD-10 - Z79.01) 03/04/2024 Acute embolism and thrombosis of unspecified deep veins of left lower extremity (ICD-10 - I82.402) 03/04/2024 Pain in right knee (ICD-10 - M25.561) Plan Of Treatment No Information Progress Notes * Amanda VICENTE MDOB: 3 (74 yo F)Acc No.[id number]:03/04/2024 Patient: Amanda Quinteros Provider: Melvin Jackson MD :1950 A ge:73 Y S ex:Female Date:03/04/2024 Phone: Address:[address] [place] [address] GIACOMO CHOU [id number] Subjective: * Chief Complaints: * I NR Check Objective: * Vitals: B P: 124/78 mm Hg, HR: 72 /min, RR: 18 /min, Temp: 97.0 F, Oxygen sat %: 96 %, Wt: 153.20 lbs, Wt-k.49 kg, INR: 2.020371. Past Vitals:* 02/19/2024 BP: 128/76 mm Hg, HR: 71 /mi n, Oxygen sat %: 96 % * 02/10/2024 BP: 118/72 mm Hg, HR: 88 /mi n, Oxygen sat %: 97 % Assessment: * Assessment: 1. A cute embolism and thrombosis of unspecified deep veins of left lower extremity - I82.402? Specify :Src Diagnosis Name: Acute deep vein thrombosis (DVT) of left lower extremity, unspecified vein 2 . P ain in right knee - M25.561 S pecify :Src Diagnosis Name: Right knee pain 3 . L ramakrishna term (current) use of anticoagulants - Z79.01 S pecify :Src Diagnosis Name: Current use of anticoagulant therapy Plan: * Labs: * L ab: Outreach PT/INR {POCT} Value Reference Range I NR Perform Location POCT [facility] * I NR POCT 2.20 seconds * (03/04/2024 09:04 AM) Test p erformed at [address] [address] CLIA#[id number] , I NR Perform Location POCT: Test Performed by: Angelita LOPEZ [address] [place] [address], [address] [place] [id number] P deysi : * Electronic signature of Dr. Naye Jackson on 12/17/2024 at 05:01 PM CDT Sign off status: Pending * Provider: Melvin Jackson MD Date: 05/04/2023 Generated for [place] cotto/Dulce/Sean on: 0 12/17/2024 05:01 PM CDT
--- OUTSIDE RECORDS SUMMARY | 2024-03-14 04:00 | XMS_ITS ---
Author Organization [facility] Address [address] [place] [address] Care Team Providers Care Syrup Shed Supervisor Name Role Phone Dr. Naye Jackson Primary Care Provider [phone] Migration, Provider Unavailable Unavailable REASON FOR VISIT EMR-Manny Encounters Encounter Location Date Provider Diagnosis [facility] [address] [place] [address] 03/14/2024 Provider Migration Plan Of Treatment Medication Medication Name Sig Start Date Stop Date Notes Eliquis 5 MG Tablet 1 Oral two times a day; Duration: 0 01/22/2024 02/12/2024 ,discontinuereason:D is continued predniSONE 20 MG Tablet 2 Oral every day ; Duration: 5 09/21/2022 09/25/2022 MaculaPF oral; Duration: 0 08/02/2022 09/25/2023 ,discon tinuereason:Dis continued *Reorder from [facility] for eRx and Interaction Alerts* Azithromycin 250 MG Tablet Oral; Duration: 0 01/22/2024 01/22/2024 Doxycycline Monohydrate 100 MG Capsule 1 Oral two times a day; Duration: 10 01/21/2024 01/21/2024 ,discontinuereason:A ll ergic Reaction Progress Notes * Amanda VICENTE MDOB: 3 (74 yo F)Acc No.[id number]:03/14/2024 Patient: Gurinder JEFFREYAmanda STARKS :1950 A ge:73 Y S ex:Female Phone: Address:[address] [place], [address] * Refills Stop predniSONE Tablet, 20 MG, Oral, 10, 2, every day, 5 Stop Eliquis Tablet, 5 MG, Oral, 60, 1, two times a day, 0 Stop MaculaPF, oral, 0 Stop Doxycycline Monohydrate Capsule, 100 MG, Oral, 20, 1, two times a day, 10 Stop Eliquis Tablet, 5 MG, Oral, 14, 1, two times a day, 0 Stop Azithromycin Tablet, 250 MG, Oral, 6, 0 Subjective: * Chief Complaints: * E MR-Manny Objective: Past Vitals:* 03/04/2024 BP: 124/78 mm Hg, HR: 72 /mi n, Oxygen sat %: 96 %, Wt: 153.20 lbs, Wt-k.49 kg * 02/19/2024 BP: 128/76 mm Hg, HR: 71 /mi n, Oxygen sat %: 96 % * * Date:
--- NOTE | ~2024-12-17 | US_ITS ---
EXAMINATION:US venous doppler LE LT INDICATION:Localized edema TECHNIQUE: Multiple grayscale, color flow and Doppler images of the left lower extremity deep venous systems were obtained and reviewed. COMPARISON:No prior studies for comparison. FINDINGS: The common femoral, superficial femoral and popliteal veins demonstrate normal respiratory variation, augmentation and compressibility. Color flow is also seen within the posterior tibial, peroneal, greater saphenous and profunda veins. IMPRESSION: 1: No lower extremity deep venous thrombosis. Reviewed, dictated and finalized at location O.
--- OUTSIDE RECORDS SUMMARY | 2024-12-17 17:01 | XMS_ITS | Clinical Summary ---
Author Organization [facility] Address [address] [place] [address] Care Team Providers Care Swimming Professor Name Role Phone Torie Bai MD Primary Care Provider Allergies Active Allergy Reactions Criticality Noted Date Comments Penicillins Unknown 10/10/2022 Medications No known medications Active Problems No known active problems Family History Medical History Relation Comments Breast Cancer Neg Hx Social History Tobacco Use Types Packs/Day Years Used Date Smoking Tobacco: Never Smokeless Tobacco: Never Alcohol Use Standard Drinks/Week Comments Never 0 (1 standard drink = 0.6 oz pur e alcohol) Comments No Sex and Gender Information Value Date Recorded Sex Assigned at Not on file Legal Sex Female 7:58 AM CDT Gender Identity Female 07/03/2021 10:20 AM CDT Sexual Orientation Not on file Last Filed Vital Signs Vital Sign Reading Time Taken Comments Blood Pressure 141/81 10/17/2022 11:19 AM CDT Pulse 68 10/17/2022 11:19 AM CDT Temperature 36.2 C (97.2 F) 10/17/2022 9:57 AM CDT Respiratory Rate 16 10/17/2022 11:19 AM CDT Oxygen Saturation 99% 10/17/2022 11:19 AM CDT Inhaled Oxygen Concentration - - Weight 66.2 kg (146 lb) 10/17/2022 9:57 AM CDT Height 152.4 cm (5') 10/17/2022 9:57 AM CDT Body Mass Index 28.51 10/17/2022 9:57 AM CDT Plan of Treatment Health Maintenance Due Date Last Done Comments Colorectal Cancer Screening Colonoscopy (10 Years) 1952 Hepatitis C 1970 Pneumococcal Vaccine: 50+ Years (1 of 1 - PCV) 2002 Zoster Vaccines (1 of 2) 2002 Annual Medicare Wellness Visit 2017 Dexa Scan (General) 2017 DTaP, Tdap and Td Vaccines (2 - Td or Tdap) 12/08/2023 12/07/2013, 02/23/2004, 02/23/2004 COVID-19 Vaccine ( - season) 2023 PHQ-2 (Physician [place]) 04/15/2024 Mammogram Screening 09/11/2025 09/12/2023, 08/21/2023, 06/18/2022, Additional history exists RSV Immunization or 60+ Years (1 - 1-dose 75+ series) 2027 Meningococcal B Vaccine Aged Out No l onger eligible based on patient's age to complete this topic Meningococcal Vaccine Aged Out No juanita rich eligible based on patient's age to complete this topic RSV Immunizations Under 20 Months Aged Out No longer eligible based on patient's age to complete this topic Medical Devices Implanted Type Area Narrow Gauge Engineer Device Identifier Shelf Expiration Date Model / Serial / Lot Iol [employer] Simplicity Dcb00 - [id number] Implanted:Qty: 1 on 10/17/2022 by Mireya Lowry MD at [facility] 06/23/2025 DCB00 / / [id number] Procedures Procedure Name Priority Date/Time Associated Diagnosis Comments MG DIAG ADD VIEW W SARAH LT STAT 09/12/2023 9:26 AM CDT Abnormal mammogram Left breast mass from Last 3 Months or Most Recently Relevant to Health Maintenance Results * MG DIAG ADD VIEW W SARAH LT (09/12/2023 9:26 AM CDT) Anatomical Region Laterality Modality Left Computed Tomogra phy, Other, Computed Tomography 09/12/2023 10:0 9 AM CDT Impressions 09/12/2023 10:13 AM CDT ===== IMPRESSION: ===== 1. No mammographic findings suggestive of malignancy. Assessment: ACR BI-RADS 2 - BENIGN FINDING(S) Recommendation: 1: Routine Screening Bilateral Comments: Ordered By: TORIE BAI Interpreted By: Aislinn Barnard, 09/12/2023 10:09 AM Narrative 09/12/2023 10:13 AM CDT Examination: Unilateral left diagnostic mammogram and ultrasound [id number] Exam Date/Time: 09/12/2023 9:12 AM Reason For Exam: Abn jayson Comparison: 09/02/2023. 06/18/2022. 05/05/2019 Technique: Digital diagnostic mammography and ultrasound of the of the leftbreast was performed. . This study was read with the assistance of a computer-aided detection system. 3D tomographic images were obtained. Tissue density: There are scattered areas of fibroglandular density. Findings: Mammogram: Previous identified nodule in the upper outer left breast is present with appearance of probable fatty hilum. No malignant microcalcifications or architectural distortion. Ultrasound: Imaging at the 3:00 position the left breast. 8 cm from the nipple.. There is an underlying well-defined hypoechoic nodule with fatty hilum. Flow to the hilum. Consistent with benign lymph node. Measures 4.7 x 2.2 x 5.0 mm us Torie Bai MD MAMMO Final Result from Last 3 Months or Most Recently Relevant to Health Maintenance Insurance MEDICARE [employer] Care Teams Swimming Professor Relationship Specialty Start Date End Date Torie Bai MD [address] [place] [address] [place], [place] [id number] PCP - General FAMILY PRACTICE 06/02/21
--- OUTSIDE RECORDS SUMMARY | 2024-12-17 17:01 | XMS_ITS | Patient Health Record ---
Author Organization [facility] Address [address] [place] [id number] Care Team Providers Care Dancing Master Name Role Phone Dr. Naye Jackson Primary Care Provider [phone] Migration, Provider Unavailable Unavailable Allergies Allergen (clinical drug ingredient) Drug/Non Drug Allergy documented on EMR Reaction Allergy Type Onset Date Status aspirin Aspirin Unknown Drug Allergy 02/07/2024 Active Substance with penicillin structure and antibacterial mechanism of action (substance) Penicillins unknown Drug Allergy 08/02/2022 Active Results Component Value Reference Range Flag Notes Outreach PT/INR {POCT} Reviewed date:02/10/2024 12:00:00 AM Interpretation: Performing Lab: Notes/Report: INR Perform Location [facility] INR POCT 1.50 seconds Outreach PT/INR {POCT} Reviewed date:02/12/2024 12:00:00 AM Interpretation: Performing Lab: Notes/Report: INR Perform Location [facility] INR POCT 2.50 seconds Outreach PT/INR {POCT} Reviewed date:02/19/2024 12:00:00 AM Interpretation: Performing Lab: Notes/Report: INR Perform Location [facility] INR POCT 2.10 seconds Outreach PT/INR {POCT} Reviewed date:03/04/2024 12:00:00 AM Interpretation: Performing Lab: Notes/Report: INR Perform Location [facility] INR POCT 2.20 seconds Ultrasound : Doppler : Veins Leg Left Reviewed date:04/29/2024 08:59:57 AM Interpretation:Negative Performing Lab: Notes/Report: Negative Outreach PT/INR {POCT} Reviewed date:11/12/2024 07:07:57 AM Interpretation: Performing Lab: Notes/Report: Test performed at [address] [address] CLIA#[id number] Test Performed by: [address] [address] Category Consultant: Barry Ji DO Report Forwarded By: [address] [place] [id number] INR POCT 1.50 0.86-1.14 seconds H INR Perform Location [facility] Outreach PT/INR {POCT} Reviewed date:11/12/2024 08:28:09 AM Interpretation: Performing Lab: Notes/Report: [place] [address] CLIA#[id number] Test Performed by: [address] [address] Category Consultant: Barry Ji DO Report Forwarded By: [address] [place] [id number] INR POCT 1.90 0.86-1.14 seconds H INR Perform Location [facility] Ultrasound : Leg, left Reviewed date:08/03/2024 05:06:02 PM Interpretation: Performing Lab: Notes/Report: Reason For Referral No Information Medications Medication SIG (Take, Route, Frequency, Duration) Notes Start Date End Date Status Apple Cider Vinegar oral; Duration: 0 *Pick stre ngth-form from [facility] for eRX* 08/02/2022 Active Eye Vitamins [facility] Active Problems Problem Type SNOMED Code ICD Code Onset Dates Problem Status W/U Status Risk Notes Problem Iron deficiency (99227498) Iron deficiency (E61.1) 09/27/19 24 Active confirmed Problem Hyperkalemia (86473731) Hyperkalemia (E87.5) 08/08/19 23 Active confirmed Problem Incipient senile cataract (935819437) Other age-related incipient cataract, bilateral (H25.093) 08/03/19 23 Active confirmed Problem Peripheral vascular disease (701371066) Peripheral vascular disease, unspecified (I73.9) 08/03/19 23 Active confirmed Problem Venous thromboembolic disease (218403604) Acute embolism and thrombosis of unspecified deep veins of left lower extremity (I82.402) 01/20/20 24 Active confirmed Problem Pneumonia (631553360) Pneumonia, unspecified organism (J18.9) 01/21/20 Active confirmed Problem Long-term current use of anticoagulant (996773168) jail (current) use of anticoagulants (Z79.01) 02/07/20 Active confirmed Problem Family history: Blood disorder (313068606) Family history of diseases of the blood and blood-forming organs and certain disorders involving the immune mechanism (Z83.2) 02/07/20 Active confirmed Problem Artificial knee joint present (731811487353) Presence of left artificial knee joint (Z96.652) 01/20/20 Active confirmed Problem Lump in left breast (0717910887207295 3) Unspecified lump in the left breast, unspecified quadrant (N63.20) 08/22/19 Active confirmed Problem General examination of patient (819438168) Routine general medical examination at health care facility (V70.0) 06/24/19 Problem resolved confirmed Problem Adult health examination (062244799) Encounter for general adult medical examination without abnormal findings (Z00.00) 06/24/19 Problem resolved confirmed Vital Signs Heart Rate 76 /min 04/20/2024 Temperature 96.8 degrees Fahrenheit 04/20/2024 Respiratory Rate 18 /min 04/20/2024 Height-cm 152.4 cm 04/20/2024 Oximetry 99 % 04/20/2024 Blood pressure diastolic 70 mm Hg 04/20/2024 Weight-kg 66.81 kg 04/20/2024 Height 60.00 in 04/20/2024 Blood pressure systolic 118 mm Hg 04/20/2024 Weight 147.3 lbs 04/20/2024 BMI 28.76 kg/m2 04/20/2024 Encounters Encounter Location Date Provider Diagnosis [address] [address] 01/20/2024 Dr. Naye Jackson Pain in left knee M25.562 ; Acute embolism and thrombosis of unspecified deep veins of left lower extremity I82.402 ; Shortness of breath R06.02 and Presence of left artificial knee joint Z96.[address] [address] 01/21/2024 Provider Migration Shortness of breath R06.02 and Pneumonia, unspecified organism J18.[address] [address] 02/07/2024 Dr. Naye Jackson Family history of diseases of the blood and blood-forming organs and certain disorders involving the immune mechanism Z83.2 ; Acute embolism and thrombosis of unspecified deep veins of left lower extremity I82.402 and rn long term care (current) use of anticoagulants Z79.[address] [address] 02/10/2024 Dr. Naye Jackson Acute embolism and thrombosis of unspecified deep veins of left lower extremity I82.402 ; Presence of left artificial knee joint Z96.652 and rn long term care (current) use of anticoagulants Z79.[address] [address] 02/12/2024 Dr. Naye Jackson jail (current) use of anticoagulants Z79.01 ; Acute embolism and thrombosis of unspecified deep veins of left lower extremity I82.402 ; Other muscle spasm M62.838 and Muscle spasm of back M62.[address] [address] 02/19/2024 Dr. Naye Jackson Acute embolism and thrombosis of unspecified deep veins of left lower extremity I82.402 and rn long term care (current) use of anticoagulants Z79.[address] [address] 03/04/2024 Dr. Naye Jackson jail (current) use of anticoagulants Z79.01 ; Acute embolism and thrombosis of unspecified deep veins of left lower extremity I82.402 and Pain in right knee M25.[address] [address] 04/03/2024 Dr. Naye Jackson Acute embolism and thrombosis of unspecified deep veins of left lower extremity I82.402 ; jail (current) use of anticoagulants Z79.01 ; Pain, joint, knee, left M25.562 and Status post fall Z91.[address] [address] 04/20/2024 Dr. Naye Jackson jail (current) use of anticoagulants Z79.01 and Acute embolism and thrombosis of unspecified deep veins of left lower extremity I82.[address] [address] 03/14/2024 Provider Migration [facility] [address] [place] [address] 03/15/2024 Provider Migration [address] [address] 12/17/2024 Dr. Naye Jackson [address] [address] 07/06/2024 Dr. Naye Jackson Assessments Encounter Date Diagnosis (ICD Code) Assessment Notes Treatment Notes Treatment Clinical Notes Section Notes 01/20/2024 Acute embolism and thrombosis of unspecified deep veins of left lower extremity (ICD-10 - I82.402) 01/20/2024 Pain in left knee (ICD-10 - M25.562) 01/20/2024 Shortness of breath (ICD-10 - R06.02) 01/20/2024 Presence of left artificial knee joint (ICD-10 - Z96.652) 01/21/2024 Pneumonia, unspecified organism (ICD-10 - J18.9) 01/21/2024 Shortness of breath (ICD-10 - R06.02) 02/07/2024 Acute embolism and thrombosis of unspecified deep veins of left lower extremity (ICD-10 - I82.402) 02/07/2024 rn long term care (current) use of anticoagulants (ICD-10 - Z79.01) 02/07/2024 Family history of diseases of the blood and blood-forming organs and certain disorders involving the immune mechanism (ICD-10 - Z83.2) 02/10/2024 Acute embolism and thrombosis of unspecified deep veins of left lower extremity (ICD-10 - I82.402) 02/10/2024 jail (current) use of anticoagulants (ICD-10 - Z79.01) 02/10/2024 Presence of left artificial knee joint (ICD-10 - Z96.652) 02/12/2024 Acute embolism and thrombosis of unspecified deep veins of left lower extremity (ICD-10 - I82.402) 02/12/2024 Muscle spasm of back (ICD-10 - M62.830) 02/12/2024 Other muscle spasm (ICD-10 - M62.838) 02/12/2024 jail (current) use of anticoagulants (ICD-10 - Z79.01) 02/19/2024 Acute embolism and thrombosis of unspecified deep veins of left lower extremity (ICD-10 - I82.402) 02/19/2024 jail (current) use of anticoagulants (ICD-10 - Z79.01) 03/04/2024 Acute embolism and thrombosis of unspecified deep veins of left lower extremity (ICD-10 - I82.402) 03/04/2024 Pain in right knee (ICD-10 - M25.561) 03/04/2024 jail (current) use of anticoagulants (ICD-10 - Z79.01) 04/03/2024 Acute embolism and thrombosis of unspecified deep veins of left lower extremity (ICD-10 - I82.402) 04/03/2024 jail (current) use of anticoagulants (ICD-10 - Z79.01) INCREASE coumadin to 2.5 mg/5mg alternating and recheck in 2 weeks. 04/20/2024 jail (current) use of anticoagulants (ICD-10 - Z79.01) 04/20/2024 Acute embolism and thrombosis of unspecified deep veins of left lower extremity (ICD-10 - I82.402) 04/03/2024 Pain, joint, knee, left (ICD-10 - M25.562) likely related to torque force during fall on her left hip - if not resolving in 2 weeks consider xray though unlikely to have hardward disruption brigette with times of no pain. 04/03/2024 Status post fall (ICD-10 - Z91.81) 04/20/2024 Other Joint Pain and Swelling - Improvement in joint pain and swelling noted. Joint replacement functioning better with less stiffness and swelling. - Continue using compression socks. No need for an appointment; walk-in is fine for follow-up. - Patient reports stiffness after standing in the kitchen for extended periods and going downstairs. - Ultrasound follow-up: Patient has not yet received a call about the ultrasound. The clinic was closed due to weather-related issues, and the main staff member could not make it. The patient will be rescheduled and informed accordingly Plan Of Treatment No Information Insurance Providers Payer Name Payer Address Payer Phone Subscriber Number Group Number Insured Name Patient Relationship to Insured Coverage Start Date Coverage End Date NGS Medicare RHC [address] [place] [phone] [id number] Amanda Ashford Self - patient is the insured 3 [employer] [address] [place] [address] [id number] Amanda Ashford Self - patient is the insured 3 Medical (General) History Medical History History ICD Code Routine general medical examination at [facility] (resolved ) V70.0 Encounter for general adult medical examination without abnormal findings (resolved 07/07/2018) Z00.00 Surgical History Surgery Date(Month/Year) knee surgery ,notes : Total knee replace ment 2021 Arthroscopy Fracture Repair, Radius/Ulna Hysterectomy Arthroplasty ,notes : Dr Arguelles, lef t total knee. 01/07/23
== END 2024-12-17 16:57 | disposition home or self-care (01) ==
PROVIDERS: PCP Family Medicine; Visit Provider Orthopaedic Surgery
DX: R60.0 Localized edema (principal); Z96.652 Presence of left artificial knee joint
CPT/HCPCS: 93971